=== PATIENT | male | born 1955 | race Caucasian/White ===

== ENCOUNTER → 2017-12-30 09:54 | Outpatient (CLI) | payer OTHER, SELFPAY ==
[2017-12-30 11:51] LABS: ALB/GLOB Ratio 1.3 RATIO (0.9-2.4); AST(SGOT) 21 U/L (15-37); Alanine Aminotransfer ALT/SGPT 24 U/L (16-61); Albumin, Serum 3.9 g/dL (3.2-5.0); Alkaline Phosphatase 71 U/L (45-117); Anion Gap 7 (5-15); BUN 14 mg/dL (7-18); BUN/Creat Ratio 17.1 RATIO (10-20); Chloride 101 mmol/L (98-107); Creatinine, Serum 0.82 mg/dL (0.70-1.30); EST Glomerular Filtration Rate 101 mL/min (>60); Est Glom Filt Rate - Afr Amer 122 mL/min (>60); Globulin 3.1 g/dL (2.2-4.2); Glucose 91 mg/dL (74-106); PSA,Total - Annual Screen 5.15 ng/mL (0.00-4.00); Potassium 3.9 mmol/L (3.5-5.1); Sodium Level 138 mmol/L (136-145)
== END ==
PROVIDERS: Family Provider Family Medicine; PCP Family Medicine; Visit Provider Family Medicine
DX: Z00.00 Encounter for general adult medical examination without abnormal findings (principal); Z12.5 Encounter for screening for malignant neoplasm of prostate; I10 Essential (primary) hypertension
CPT/HCPCS: 36415; 80053; 84153; G0103

== ENCOUNTER → 2018-02-26 16:20 | Outpatient (CLI) | payer OTHER, SELFPAY ==
--- NOTE | 2018-02-26 | COLBX_PTH ---
PATIENT: BARBARA TIRADO LOC: [facility] U#:[id number] AGE/SX: 70/M ROOM: RE02/26/[address]: Dr. Frank Clay MD : 1955 BED: DIS: SPEC #: [id number] RECD: 03/04/18 11:15 STATUS: SHIVA OLMEDOValdez #: [id number] GARFIELD: 02/26/18 00:[address]: Frank Clay DEPT: SURGICAL PATHOLOGY RECD BY: Jesus Talbot ENTERED: 03/04/18 11:15 SP TYPE: COLON BX JCARLOS DR: Dr. Devante Zaragoza, [facility] Tissues: Sigmoid colon biopsy Procedures: Surgery Specimen Level IV HEADER OPERATION: Colonoscopy with biopsies PRE-OP DIAGNOSIS: History of polyps TISSUE SUBMITTED: Proximal sigmoid, rule out adenoma MICROSCOPIC DIAGNOSIS Proximal sigmoid colon, biopsy: Tubular adenoma. SJ:dillon 03/04/18 MICROSCOPIC DESCRIPTION Slides are reviewed. GROSS DESCRIPTION Received in fixative is one container labeled with the patient's name and designated proximal sigmoid colon biopsy. The specimen consists of one irregular fragment of light chan soft tissue that measures 0.2 x 0.2 x 0.1 cm. The specimen is totally submitted in one cassette. / SJ:dillon 03/01/18 TC:1 CPT: 96346
== END ==
PROVIDERS: Family Provider Family Medicine; PCP Family Medicine; Visit Provider Internal Medicine Gastroenterology
DX: K63.5 Polyp of colon (principal); Z86.010 Personal history of colon polyps
CPT/HCPCS: 88305

== ENCOUNTER → 2018-07-06 13:39 | Outpatient (CLI) | payer OTHER, SELFPAY ==
[2018-07-07 13:56] LABS: PSA, Total 4.9 ng/mL (0.0-4.0)
== END ==
PROVIDERS: Family Provider Family Medicine; PCP Family Medicine; Referring Provider Family Medicine; Visit Provider Family Medicine
DX: R97.20 Elevated prostate specific antigen [PSA] (principal)
CPT/HCPCS: 36415; 84153

== ENCOUNTER → 2018-12-29 08:57 | Outpatient (CLI) | payer OTHER, SELFPAY ==
[2018-12-29 08:31] VITALS: BMI 25.2
[2018-12-29 12:54] LABS: Absolute Lymphocyte Count 1.81 X10^3/ul (0.83-4.51); Absolute Neutrophil Count 4.2 X10^3/uL (2.0-7.7); Basophil# 0.04 X10^3/uL; Basophil% 0.6 % (0-1); Eosinophil# 0.09 X10^3/uL; Eosinophils% 1.4 % (0-5); Hematocrit 45.4 % (40-54); Hemoglobin 15.4 g/dl (13.0-16.5); Lymphocyte # 1.81 X10^3/ul (4.0); Lymphocyte % 27.2 % (19-41); Mean Corp Hgb Conc 33.9 g/gl (32-36); Mean Corpuscular Hgb 31.8 pg (27.0-32.0); Mean Corpuscular Volume 93.8 fL (80-94); Mean Platelet Vol. 10.9 fl (6.2-12.0); Monocyte# 0.56 X10^3/uL; Monocyte% 8.4 % (0-10); Neutrophil # 4.15 X10^3/uL (2.7-7.7); Neutrophil % 62.2 % (47-70); Platelet Count 232 K/mm3 (150-450); RBC Distribution Width CV 12.7 % (11.6-14.6); RBC Distribution Width SD 42.9 fl (35.1-43.9); Red Blood Count 4.84 M/mm3 (4.6-6.2); White Blood Count 6.7 K/mm3 (4.4-11.0)
[2018-12-29 12:58] LABS: POSITIVE COUNT NO; POSITIVE DIFFERENTIAL NO; POSITIVE MORPHOLOGY NO
[2018-12-29 13:16] LABS: ALB/GLOB Ratio 1.3 RATIO (0.9-2.4); AST(SGOT) 22 U/L (15-37); Alanine Aminotransfer ALT/SGPT 28 U/L (16-61); Albumin, Serum 3.8 g/dL (3.2-5.0); Alkaline Phosphatase 64 U/L (45-117); Anion Gap 7 (5-15); BUN 14 mg/dL (7-18); BUN/Creat Ratio 17.6 RATIO (10-20); Calcium,Total 8.7 mg/dL (8.5-10.1); Chloride 102 mmol/L (98-107); Cholesterol 177 mg/dL (200); EST Glomerular Filtration Rate 104 mL/min (>60); Est Glom Filt Rate - Afr Amer 125 mL/min (>60); Globulin 2.9 g/dL (2.2-4.2); Glucose 97 mg/dL (74-106); High Density Lipoprotein 81 mg/dL; PSA,Total - Annual Screen 4.35 ng/mL (0.00-4.00); Protein, Total 6.7 g/dL (6.4-8.2); Sodium Level 137 mmol/L (136-145); Triglycerides 60 mg/dL; Very Low Density Lipoprotein 12 mg/dL (5-40)
== END ==
PROVIDERS: Family Provider Family Medicine; PCP Family Medicine; Visit Provider Family Medicine
DX: I10 Essential (primary) hypertension (principal); R53.83 Other fatigue; R97.20 Elevated prostate specific antigen [PSA]
CPT/HCPCS: 36415; 80053; 80061; 84153; 85025; G0103

== ENCOUNTER 2019-05-21 09:59 | Emergency (ER) | payer OTHER, SELFPAY ==
[2019-05-20 13:31] VITALS: BMI 25.0
[2019-05-21 10:00] VITALS: BP 185/113; PULSE 72; RESP 14; TEMP 36.1; O2SAT 97; BMI 25.7
--- NOTE | 2019-05-21 10:39 | ED.VIS.GEN ---
History of Present Illness Chief Complaint: Cellulitis Informant: Patient Onset: Days Maximum Severity: Mild Narrative: Patient indicates he has a red patch to his skin involving the left calf that began he believes Thursday. 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, works as a mechanic and welder he felt that the calf was irritated he looked back and found what he felt was an insect bite type lesion and then subsequently the area developed some more redness superficially to the skin, he was seen by his outpatient providers yesterday started on cephalexin took 2 tablets he was concerned that the redness had extended beyond the ink ink demarcation and he came in for evaluation he does not know why has this lesion he has no history of MRSA skin infections or other conditions he is concerned he was bitten by a spider but he had no exposure to spiders Past Medical History - Allergies and Home Meds Allergies/Adverse Reactions: Allergies Penicillins Allergy (Verified 05/21/19 10:10) Rash swelling too Primary Care Physician: Devante Zaragoza DO [Primary Care Provider] - Past Medical History: - - Hypertension and as above Smoking Status: Current every day smoker Review of Systems General: Denies: Chills, Fever, Sweats Eyes: Denies: Visual changes - bilaterally, Diplopia ENT: Denies: Rhinorrhea, Sore throat Cardiovascular: Denies: Chest pain, Palpitations Respiratory: Denies: Dyspnea, Cough, Dyspnea on exertion Gastrointestinal: Denies: Abdominal pain, Nausea, Vomiting, Diarrhea, Melena, Hematochezia Genitourinary: Denies: Dysuria, Hematuria, Frequency Musculoskeletal: Denies: Back pain, Extremity Pain Skin: Reports: Rash, - - The red skin rash to the left calf as above. Denies: Wounds Neurological: Denies: Headache, Weakness, Numbness Physical Exam Vital Signs/Narrative: Vital Signs Temp Pulse Resp BP Pulse Ox 05/21/19 10:00 97.0 F L 72 14 185/113 H 97 General: Well nourished, Well developed, No Acute Distress Head: Normocephalic, Atraumatic Eyes: Perrl, EOMI ENT: Moist mucous membranes, No rhinorrhea Neck: Supple, Nontender Cardiovascular: Regular rate, Regular rhythm, No murmurs Respiratory: No distress, CTA bilaterally, Chest nontender Abdomen: Soft, Nontender, Nondistended, Normal bowel sounds Back: Nontender, Normal Inspection Extremities: Nontender, No edema Skin: Normal color, Rash, - - To the left calf area there is a area of red patchy skin involving the calf the calf the soft is not fluctuant there is no warmth deep signs of infection he has full dorsi and plantar flexion full movement of the knee, central to this area to the 7 o'clock position are what appear to be possibly to bite balderas, they are not infected no draining Neurological: Alert, Oriented x3, Cranial nerves II-XII grossly intact, Normal Strength, Normal Sensation Psychological: Normal affect, Normal Mood Diagnostic/Tx/Re-eval - Medical Decision Making At this time given all the above I explained to the patient that this certainly could represent an insect bite given the demarcations as above, given he had no exposures to spiders in any way this would be less likely at this time be started continue on the cephalexin originally had 2 pills there is no way to determine if this is an antibiotic resistance with a short course as above, we will add Bactrim wound care and to follow-up with his outpatient providers Thursday and return for change in symptoms or worsening of his condition anyway Home stable Final impression Cellulitis involving the left lower leg calf area ED Disposition - Plan for ED Patient: Diagnosis: Cellulitis Instructions: MRSA SKIN INFECTION, Suspected or Confirmed Prescriptions: Smz/Tmp Ds [Bactrim Ds] 1 tab PO BID #14 tab Prescription Printed Referrals: Devante Zaragoza DO [Primary Care Provider] - Additional Instructions: Continue the cephalexin continue the Bactrim follow-up with your doctors in a few days
[2019-05-21] MEDS: Smz/Tmp Ds Tablet 1 TABLET PO (10:51)
[2019-05-21 10:54] VITALS: RESP 16
== END 2019-05-21 11:03 | disposition home or self-care (01) ==
LOC: ED 11:02
PROVIDERS: Emergency Provider Emergency Medicine; Family Provider Family Medicine; PCP Family Medicine
DX: L03.116 Cellulitis of left lower limb (principal); I10 Essential (primary) hypertension; F17.200 Nicotine dependence, unspecified, uncomplicated
CPT/HCPCS: 99282

== ENCOUNTER → 2019-06-30 09:47 | Outpatient (CLI) | payer OTHER, SELFPAY ==
[2019-06-30 09:26] VITALS: BMI 25.1
[2019-06-30 14:17] LABS: PSA,Total- Diagnostic 4.82 ng/mL (0.0-4.0)
== END ==
PROVIDERS: Family Provider Family Medicine; PCP Family Medicine; Visit Provider Family Medicine
DX: R97.20 Elevated prostate specific antigen [PSA] (principal); R53.83 Other fatigue
CPT/HCPCS: 36415; 84153; 84403

== ENCOUNTER → 2020-02-15 12:39 | Outpatient (CLI) | payer OTHER, SELFPAY ==
[2020-02-15 08:42] VITALS: BMI 25.1
[2020-02-15 14:08] LABS: Anion Gap 6 (5-15); BUN 14 mg/dL (7-18); BUN/Creat Ratio 18.6 RATIO (10-20); Calcium,Total 9.4 mg/dL (8.5-10.1); Chloride 100 mmol/L (98-107); Creatinine, Serum 0.75 mg/dL (0.70-1.30); EST Glomerular Filtration Rate 110 mL/min (>60); Est Glom Filt Rate - Afr Amer 133 mL/min (>60); Glucose 95 mg/dL (74-106); PSA,Total- Diagnostic 6.98 ng/mL (0.0-4.0); Potassium 3.8 mmol/L (3.5-5.1); Sodium Level 136 mmol/L (136-145)
== END ==
PROVIDERS: PCP Family Medicine; Visit Provider Family Medicine
DX: N40.0 Benign prostatic hyperplasia without lower urinary tract symptoms (principal); I10 Essential (primary) hypertension
CPT/HCPCS: 80048; 84153

== ENCOUNTER 2020-03-11 10:17 | Emergency (ER) | payer OTHER, SELFPAY ==
[2020-02-15 08:42] VITALS: BMI 25.1
[2020-03-11 10:18] VITALS: BP 144/89; PULSE 54; RESP 16; TEMP 36.3; BMI 25.7
--- NOTE | 2020-03-11 10:26 | RAD_ITS ---
STUDY: X-RAY CHEST REASON FOR EXAM: Male, 65 years old. TECHNIQUE: Frontal view COMPARISON: None. FINDINGS: The lungs are clear and expanded. There is no demonstrated pleural abnormality. Normal size heart. Normal mediastinum and mariam. Normal visualized pulmonary arteries. Normal visualized aortic arch and descending thoracic aorta. Normal visualized thoracic spine. Normal visualized ribs, clavicles, and shoulders. There is no demonstrated abnormality of the visualized soft tissue structures of the upper abdomen. RAD/Chest 1 View (Portable) IMPRESSION: Normal x-ray examination of the chest. Electronically Signed: David Moore DO at 11:25 EDT Tel [phone], Service support ,
--- NOTE | 2020-03-11 10:26 | CT_ITS ---
STUDY: CT BRAIN WITHOUT CONTRAST REASON FOR EXAM: Male, 65 years old. DIZZINESS X 3 DAYS RADIATION DOSAGE (If Supplied By Facility): CTDIvol = ( 44.99 ) mGy, DLP = ( 812.98 ) mGycm TECHNIQUE: Transaxial CT imaging of the brain was performed without administration of intravenous contrast material. Individualized dose optimization techniques were used for this CT. COMPARISON: No relevant priors. FINDINGS: Normal size ventricles and extra-axial spaces for the patient''s age. There are areas of decreased attenuation within the white matter tracts of the supratentorial brain, consistent with microvascular disease changes. Normal basal ganglia and thalami. Normal brainstem. Normal cerebellum. There is no intracranial hemorrhage. There are no findings of an acute ischemic infarction. Normal visualized paranasal sinuses. CT/Brain/Head without Contrast IMPRESSION: No acute intracranial abnormality. Electronically Signed: Jaden De Anda MD at 11:37 EDT Tel , Service support ,
--- NOTE | 2020-03-11 10:26 | EKG12_ITS ---
Test Reason : DYSRHYTHMIA Blood Pressure : / mmHG Vent. Rate : 050 BPM Atrial Rate : 050 BPM P-R Int : 166 ms QRS Dur : 122 ms QT Int : 462 ms P-R-T Axes : 048 -62 021 degrees QTc Int : 421 ms Sinus bradycardia with sinus arrhythmia Left axis deviation Septal infarct , age undetermined Abnormal ECG Confirmed by ANIA HUNT, KILO ([id number]), pot lining supervisor VICKI LÓPEZ ([id number]) on 03/13/2020 11:13:40 AM Referred By: KSENIA Confirmed By:KILO JORGE MD
[2020-03-11 10:45] LABS: Absolute Neutrophil Count 4.1 X10^3/uL (2.0-7.7); Basophil# 0.05 X10^3/uL; Basophil% 0.8 % (0-1); Eosinophil# 0.09 X10^3/uL; Eosinophils% 1.4 % (0-5); Hematocrit 46.6 % (40-54); Hemoglobin 15.2 g/dL (13.0-16.5); Mean Corp Hgb Conc 32.6 g/dL (32-36); Mean Corpuscular Hgb 32.2 pg (27.0-32.0); Mean Corpuscular Volume 98.7 fL (80-94); Mean Platelet Vol. 9.9 fl (6.2-12.0); Monocyte# 0.52 X10^3/uL; Monocyte% 8.1 % (0-10); NRBC Flagged by Analyzer 0 % (0-5); Neutrophil # 4.12 X10^3/uL (2.7-7.7); Neutrophil % 64.4 % (47-70); Platelet Count 231 K/mm3 (150-450); RBC Distribution Width CV 12.6 % (11.6-14.6); RBC Distribution Width SD 45.8 fl (35.1-43.9); Red Blood Count 4.72 M/mm3 (4.6-6.2); White Blood Count 6.4 K/mm3 (4.4-11.0)
--- NOTE | 2020-03-11 10:46 | ED.DCSUM_ITS ---
History of Present Illness <Andrea Pack - Last Filed: 03/11/20 11:03> Informant: Patient Onset: Yesterday Context: Sudden Onset Timing: Intermittent Quality: romm spinning Location: head Current Severity: Moderate Maximum Severity: Severe Worsened by: movement Relieved by: rest Associated Symptoms: nausea Narrative: 65-year-old male history of vertigo presents with dizziness and room spinning sensation that he has had intermittently for the last 3 days. Started when he was on a boat on Thursday and has had intermittent episodes since. They have stopped with rest but symptoms today when he got up in the morning did not resolve with rest and he presents here. No headache. No blurry vision double vision or loss of vision. No numbness tingling or weakness or difficulty with speech or ambulation. No head trauma. He is not on blood thinners. No tenderness. No fevers or chills chest pain or shortness of breath vomiting or neck pain. Prior similar symptoms: Yes Recent Illness/Hospitalization: No <Juan CarlosyolandeErik - Last Filed: 03/11/20 11:53> Chief Complaint: Dizziness Past Medical History <Andrea Pack - Last Filed: 03/11/20 11:03> Prior records reviewed: Yes Past Medical History: - - Spinal stenosis, hypertension, osteoarthritis Surgical History: - - Knee surgery Lives: With Family Smoking Status: Current every day smoker Alcohol: Occasional Drugs: None <Erik Caceres - Last Filed: 03/11/20 11:53> - Allergies and Home Meds Allergies/Adverse Reactions: Allergies Penicillins Allergy (Verified 03/11/20 10:20) Rash swelling too Primary Care Physician: eDvante Zaragoza DO [Primary Care Provider] - Review of Systems All systems negative except as indicated General: Denies: Chills, Fever, Sweats Eyes: Denies: Visual changes - bilaterally, Diplopia ENT: Denies: Rhinorrhea, Sore throat Cardiovascular: Denies: Chest pain, Palpitations Respiratory: Denies: Dyspnea, Cough, Dyspnea on exertion Gastrointestinal: Denies: Abdominal pain, Nausea, Vomiting, Diarrhea, Melena, Hematochezia Genitourinary: Denies: Dysuria, Hematuria, Frequency Musculoskeletal: Denies: Back pain, Extremity Pain Skin: Denies: Rash, Wounds Neurological: Denies: Headache, Weakness, Parasthesia, Numbness <Erik Caceres - Last Filed: 03/11/20 11:53> Physical Exam Vital Signs/Narrative: Vital Signs Temp Pulse Resp BP Pulse Ox 03/11/20 11:00 49 L 18 162/84 H 95 03/11/20 10:18 97.3 F L 54 L 16 144/89 H <Andrea Pack - Last Filed: 03/11/20 11:03> Vital Signs/Narrative: Vital Signs Temp Pulse Resp BP 03/11/20 10:18 97.3 F L 54 L 16 144/89 H Inital Vital Signs reviewed: Yes General: Well nourished, Well developed, No Acute Distress Head: Normocephalic, Atraumatic Eyes: Perrl, EOMI ENT: Moist mucous membranes, No rhinorrhea Neck: Supple, Nontender Cardiovascular: Regular rate, Regular rhythm, No murmurs Respiratory: No distress, CTA bilaterally, Chest nontender Abdomen: Soft, Nontender, Nondistended, Normal bowel sounds Back: Nontender, Normal Inspection Extremities: Nontender, No edema Skin: Normal color, No rash Neurological: Alert, Oriented x3, Cranial nerves II-XII grossly intact, Normal Strength, Normal Sensation, Normal Gait Psychological: Normal affect, Normal Mood <Erik Caceres - Last Filed: 03/11/20 11:53> Diagnostic/Tx/Re-eval - Medical Decision Making Patient seen with Erik agree with history and physical as above patient presents with spinning dizzy sensation since Thursday Had this before he has no loss of function just a sense of spinning sensation like he is on a [id number] no headache change in vision numbness weakness paresthesias, this began after he had been on a boat Thursday fishing all day, no history of [place] PE DVT stroke or seizure he does have a history of peripheral vertigo Head neck chest abdomen unremarkable there is no nystagmus if he is perfectly still his symptoms go away neurologic exams unremarkable NIH 0 at this time undergo evaluation treatment see chart for full details <Andrea Pack - Last Filed: 03/11/20 11:03> Chest X-Ray - ED: 1 View, Read by ED Physician, Read by Radiologist, No Acute Disease - Rhythm Strip Rhythm Strip: Sinus Rhythm Rate: 50 Ectopy: None - EKG Initial EKG Interpretation: Sinus Rhythm, No Acute Injury Pattern Prior: Unchanged - Medical Decision Making EKG was normal sinus rhythm without ST segment or T wave changes and with normal intervals. No ectopy is seen. It is unchanged from his previous EKG. Patient was given Valium orally because we do not have IV Valium. CT brain was unremarkable for acute findings. Chest x-ray showed chronic c hanges no acute findings. Laboratory work-up unremarkable. Repeat evaluation patient feels improved. Normal stable vital signs. He is ambulatory on his own without difficulty. Will discharge with meclizine <Erik Caceres - Last Filed: 03/11/20 11:53> ED Disposition <Andrea Pack - Last Filed: 03/11/20 11:03> <Erik Caceres - Last Filed: 03/11/20 11:53> - Plan for ED Patient: Disposition: Home or Assisted Living Diagnosis: Vertigo, Hypertension Instructions: ED BPV Vertigo Prescriptions: Meclizine HCl 25 mg PO TID PRN PRN #20 tab PRN Reason: dizziness Prescription Printed Referrals: Devante Zaragoza DO [Primary Care Provider] -
[2020-03-11] MEDS: diazePAM 5 MG Tablet PO (10:57)
[2020-03-11] MEDS: 0.9% Normal Saline 1,000 ML 150 ML IV (10:58)
[2020-03-11 11:00] VITALS: BP 162/84; PULSE 49; RESP 18; O2SAT 95; O2SAT 96
[2020-03-11 11:03] LABS: Anion Gap 4 (5-15); BUN 15 mg/dL (7-18); BUN/Creat Ratio 18.7 RATIO (10-20); Calcium,Total 9.1 mg/dL (8.5-10.1); Chloride 102 mmol/L (98-107); EST Glomerular Filtration Rate 102 mL/min (>60); Est Glom Filt Rate - Afr Amer 124 mL/min (>60); Estimated Creatinine Clearance 93.78 ml/min; Glucose 118 mg/dL (74-106); Potassium 3.9 mmol/L (3.5-5.1); Sodium Level 138 mmol/L (136-145)
[2020-03-11 11:19] LABS: BNP,B-Type NATRIURETIC PEPTIDE 83.4 pg/mL (0-100)
[2020-03-11] MEDS: Meclizine HCl 25 MG Tablet PO (12:10)
[2020-03-11 12:15] VITALS: BP 147/85; PULSE 47; RESP 18; O2SAT 98
== END 2020-03-11 12:25 | disposition home or self-care (01) ==
LOC: ED 12:06
PROVIDERS: Emergency Medicine; Emergency Provider Physician Assistant Medical; PCP Family Medicine
DX: R42 Dizziness and giddiness (principal); I10 Essential (primary) hypertension; F17.200 Nicotine dependence, unspecified, uncomplicated
CPT/HCPCS: 70450; 71045; 80048; 83880; 84484; 85025; 93005; 99285; J7030

== ENCOUNTER → 2020-03-26 16:07 | Outpatient (CLI) | payer OTHER, SELFPAY ==
[2020-03-11 10:18] VITALS: BMI 25.7
--- NOTE | 2020-03-26 | IMM_PTH ---
PATIENT: BARBARA TIRADO LOC: [facility] U#:[id number] AGE/SX: 70/M ROOM: RE03/26/[address]: Dr. Vj Dias MD : 1955 BED: DIS: SPEC #: [id number] RECD: 03/28/20 13:33 STATUS: SHIVA REValdez #: [id number] GARFIELD: 03/26/20 00:[address]: Vj Dias DEPT: IMMUNOHISTOCHEMISTRY RECD BY: Angela Cordova ENTERED: 03/28/20 13:34 SP TYPE: IMMUNO OTHR DR: Dr. Devante Zaragoza, Tissues: C - PROSTATE RIGHT Procedures: P40 (add) 34BE12 (initial) PHYSICIAN & INSTITUTION [place] [id number] SPECIMEN INFORMATION: Tissue Source: C - Right prostate, base, core biopsy Clinical Info: Prostate cancer, elevated PSA Specimen Number: [id number] CPT code: 73810, 01761 METHODOLOGY: Deparaffinized sections of prefer/formalin-fixed tissue or PAP/DQ stained slides are incubated with monoclonal/polyclonal antibodies/oligonucleotide probes. Localization is made via biotin free immunoperoxidase method. Appropriate controls are performed and reacted as expected. Results on target cell population are indicated in the following table: RESULTS: ANTIBODY / CLONE RESULT Block C P40 (BC28) negative 34BE12 (34BE12) negative These tests were developed and their performance characteristics determined by [facility]. They may not have been cleared or approved by the U.S. Food and Drug Administration. The FDA has determined that such clearance or approval is not necessary. The above immunohistochemical/dualISH markers are ordered and reviewed by the Pathologist. INTERPRETATION: C. Right prostate, base, core biopsy: Focal atypical small acinar proliferation. Focal high-grade prostatic intraepithelial neoplasia (HGPIN). Comment: Atypical focus consists of only 2-3 glands. SJ:dillon 03/29/20
--- NOTE | 2020-03-26 08:00 | PROSBIL_PTH ---
PATIENT: BARBARA TIRADO LOC: [facility] U#:[id number] AGE/SX: 70/M ROOM: RE03/26/[address]: Dr. Vj Dias MD : 1955 BED: DIS: SPEC #: [id number] RECD: 03/26/20 16:04 STATUS: SHIVA CARLA #: [id number] GARFIELD: 03/26/20 08:[address]: Vj Dias DEPT: SURGICAL PATHOLOGY RECD BY: James Mark ENTERED: 03/27/20 09:38 SP TYPE: PROST BX JCARLOS DR: Dr. Devante Zaragoza DO Tissues: A - PROSTATE RIGHT B - PROSTATE RIGHT C - PROSTATE RIGHT D - PROSTATE LEFT E - PROSTATE LEFT F - PROSTATE LEFT Procedures: PROSTATE BX HEADER OPERATION: Prostate biopsy PRE-OP DIAGNOSIS: Prostate cancer, elevated PSA TISSUE SUBMITTED: A - Right apex, B - Right mid, C - Right base, D - Left apex, E - Left mid, F - Left base MICROSCOPIC DIAGNOSIS A. Right prostate, apex, core biopsy: Focal high-grade prostatic intraepithelial neoplasia (HGPIN). Focal mild chronic inflammation. B. Right prostate, mid, core biopsy: Prostatic tissue, negative for malignancy. C. Right prostate, base, core biopsy: Focal atypical small acinar proliferation. Focal high-grade prostatic intraepithelial neoplasia (HGPIN). See comment. D. Left prostate, apex, core biopsy: Prostatic tissue, negative for malignancy. E. Left prostate, mid, core biopsy: Focal high-grade prostatic intraepithelial neoplasia (HGPIN). F. Left prostate, base, core biopsy: Focal high-grade prostatic intraepithelial neoplasia (HGPIN). SJ:dillon 03/29/20 COMMENT C. Immunohistochemistry ([id number]) supports the above diagnosis. Case has been reviewed in consultation with Dr. Park who concurs with the above diagnosis. IDC:AM MICROSCOPIC DESCRIPTION Slides are reviewed. GROSS DESCRIPTION A - Received is one container designated prostate, right apex. The specimen consists of two elongated fragments of light chan-white soft tissue measuring 0.5 and 1.2 cm in length and 0.1 cm in diameter. The specimen is totally submitted in one cassette. B - Received is one container designated prostate, right mid. The specimen consists of two elongated fragments of light chan-white soft tissue each measuring 1.5 cm in length and 0.1 cm in diameter. The specimen is totally submitted in one cassette. C - Received is one container designated prostate, right base. The specimen consists of two elongated fragments of light chan-white soft tissue measuring 1.2 and 1.5 cm in length and 0.1 cm in diameter. The specimen is totally submitted in one cassette. D - Received is one container designated prostate, left apex. The specimen consists of one elongated fragment of light chan-white soft tissue measuring 1.5 cm in length and 0.1 cm in diameter. The specimen is totally submitted in one cassette. E - Received is one container designated prostate, left mid. The specimen consists of two elongated fragments of light chan-white soft tissue each measuring 1.5 cm in length and 0.1 cm in diameter. The specimen is totally submitted in one cassette. F - Received is one container designated prostate, left base. The specimen consists of two elongated fragments of light chan-white soft tissue each measuring 1.5 cm in length and 0.1 cm in diameter. The specimen is totally submitted in one cassette. / CHUCK:dillon 03/27/20 TC:5 CPT: G0146
== END ==
PROVIDERS: PCP Family Medicine; Referring Provider Urology; Visit Provider Urology
DX: C61 Malignant neoplasm of prostate (principal); R97.20 Elevated prostate specific antigen [PSA]
CPT/HCPCS: 88305; 88341; 88342; G0416

== ENCOUNTER → 2020-10-02 10:45 | Outpatient (CLI) | payer MEDICARE, SELFPAY ==
[2020-10-02 12:03] LABS: PSA,Total- Diagnostic 7.63 ng/mL (0.0-4.0)
== END ==
PROVIDERS: PCP Family Medicine; Visit Provider Urology
DX: R97.20 Elevated prostate specific antigen [PSA] (principal)
CPT/HCPCS: 36415; 84153

== ENCOUNTER 2020-12-06 07:21 | Outpatient (RCR) | payer MEDICARE, SELFPAY ==
[2020-12-06] MEDS: COVID-19 VACC, MRNA(PFIZER)/PF 30 MCG/0.3 ML SYRINGE IM (13:21)
[2020-12-27] MEDS: COVID-19 VACC, MRNA(PFIZER)/PF 30 MCG/0.3 ML SYRINGE IM (12:40)
== END 2021-03-05 23:59 ==
LOC: IMMUN 07:21
PROVIDERS: PCP Family Medicine; Referring Provider Family Medicine; Visit Provider Family Medicine
DX: Z23 Encounter for immunization (principal)
CPT/HCPCS: 0001A; 0002A; 91300

== ENCOUNTER → 2021-01-02 11:31 | Outpatient (CLI) | payer MEDICARE, SELFPAY ==
[2021-01-02 11:02] VITALS: BMI 26.4
[2021-01-02 13:10] LABS: ALB/GLOB Ratio 1.4 RATIO (0.9-2.4); AST(SGOT) 28 U/L (15-37); Alanine Aminotransfer ALT/SGPT 29 U/L (16-61); Alkaline Phosphatase 90 U/L (45-117); Anion Gap 5 (5-15); BUN 12 mg/dL (7-18); BUN/Creat Ratio 16.7 RATIO (10-20); Calcium,Total 9.6 mg/dL (8.5-10.1); Chloride 98 mmol/L (98-107); Cholesterol 212 mg/dL (200); Creatinine, Serum 0.72 mg/dL (0.70-1.30); EST Glomerular Filtration Rate 116 mL/min (>60); Est Glom Filt Rate - Afr Amer 140 mL/min (>60); Globulin 2.9 g/dL (2.2-4.2); Glucose 97 mg/dL (74-106); High Density Lipoprotein 91 mg/dL; Potassium 3.9 mmol/L (3.5-5.1); Protein, Total 6.9 g/dL (6.4-8.2); Sodium Level 133 mmol/L (136-145); Triglycerides 83 mg/dL; Very Low Density Lipoprotein 17 mg/dL (5-40)
== END ==
PROVIDERS: PCP Family Medicine; Referring Provider Family Medicine; Visit Provider Family Medicine
DX: I10 Essential (primary) hypertension (principal)
CPT/HCPCS: 36415; 80053; 80061

== ENCOUNTER → 2021-04-12 11:39 | Outpatient (CLI) | payer MEDICARE, SELFPAY ==
[2021-01-02 11:02] VITALS: BMI 26.4
[2021-04-12 13:55] LABS: PSA,Total- Diagnostic 7.36 ng/mL (0.0-4.0)
== END ==
PROVIDERS: PCP Family Medicine; Referring Provider Urology; Visit Provider Urology
DX: R97.20 Elevated prostate specific antigen [PSA] (principal)
CPT/HCPCS: 36415; 84153

== ENCOUNTER → 2021-08-09 06:47 | Outpatient (CLI) | payer MEDICARE, SELFPAY ==
--- NOTE | 2021-08-09 06:51 | CT_ITS ---
STUDY: CT ABDOMEN AND PELVIS WITH CONTRAST REASON FOR EXAM: Male, 66 years old. Two-year history of right inguinal pain. Suspected hernia RADIATION DOSAGE (If Supplied By Facility): CTDIvol = ( 15.75 ) mGy, DLP = ( 1163.95 ) mGycm TECHNIQUE: Transaxial images were obtained from the dome of the diaphragm to the symphysis pubis without oral contrast. IV 100mL Isovue-300 was administered. Sagittal and coronal images were reconstructed. Individualized dose optimization techniques were used for this CT. COMPARISON: None. FINDINGS: Minimal increased linear markings at the left lung base suggestive scarring. Coronary artery calcification. Normal liver. Normal gallbladder and extrahepatic biliary system. Normal spleen. Normal pancreas. Normal bilateral adrenal glands. Normal right kidney. There is a 3.2 cm x 3.5 cm cyst in the upper medial aspect of the left kidney. There is also evidence of a 1.3 cm cyst in the lower pole of the left kidney as well as a 2.5 semi cyst in the medial posterior aspect of the left kidney. Normal visualized stomach. Normal small intestine. There are multiple colonic diverticula consistent with diverticulosis. The appendix is visualized and appears normal. There is diffuse atherosclerotic calcification of the abdominal aorta, without a demonstrated aneurysm. Normal inferior vena cava. Normal retroperitoneum. Diffuse bladder wall thickening. Scattered calcifications of the penis suggestive of possible Peyrone''s disease. Prostate calcification. Left hydrocele. Small bilateral inguinal hernias containing fat more prominent on the right side. There are diffuse degenerative changes of the visualized lumbar spine. Minimal anterolisthesis of L3 on L4. Loss of the normal lumbar lordosis. CT/Abdomen/Pelvis W IV Cont ONLY IMPRESSION: Small bilateral inguinal hernias containing fat more prominent on the right side. Sigmoid diverticulosis. Left renal cyst. Diffuse bladder wall thickening. Electronically Signed: Aaron Serrano MD at 12:53 EST , Service support ,
[2021-08-09 07:06] LABS: CREATININE FINGERSTICK 0.6 mg/dL (0.70-1.30); EGFR FINGERSTICK > 60.0000 mL/min (>60)
== END ==
LOC: US 06:48 → CT 06:51
PROVIDERS: PCP Family Medicine; Referring Provider Family Medicine; Visit Provider Family Medicine
DX: K46.9 Unspecified abdominal hernia without obstruction or gangrene (principal)
CPT/HCPCS: 74177; Q9967

== ENCOUNTER 2021-10-17 11:38 | Outpatient (CLI) | payer MEDICARE, SELFPAY ==
[2021-10-17 12:39] LABS: PSA,Total- Diagnostic 7.23 ng/mL (0.0-4.0)
== END 2021-10-17 23:59 | disposition short-term general hospital (02) ==
LOC: LAB 11:39
PROVIDERS: PCP Family Medicine; Referring Provider Urology; Visit Provider Urology
DX: R97.20 Elevated prostate specific antigen [PSA] (principal)
CPT/HCPCS: 36415; 84153

== ENCOUNTER 2021-11-07 07:53 | Day surgery (SDC) | payer MEDICARE, SELFPAY ==
--- NOTE | 2021-11-06 09:12 | EKG12_ITS ---
Test Reason : PREOP Blood Pressure : / mmHG Vent. Rate : 053 BPM Atrial Rate : 053 BPM P-R Int : 160 ms QRS Dur : 128 ms QT Int : 442 ms P-R-T Axes : 024 -61 029 degrees QTc Int : 414 ms Sinus bradycardia Left axis deviation Non-specific intra-ventricular conduction block Abnormal ECG Confirmed by ESTHER HUNT, DEANNA ([id number]), editor newspaper JEREMY SCHMIDT ([id number]) on 11/07/2021 9:52:48 AM Referred By: Erik Rodriguez Confirmed By:DEANNA SANTANA MD
[2021-11-06 11:10] LABS: Hematocrit 42.3 % (40-54); Hemoglobin 14.8 g/dL (13.0-16.5); Mean Corpuscular Hgb 34.1 pg (27.0-32.0); Mean Corpuscular Volume 97.5 fL (80-94); Mean Platelet Vol. 10.2 fl (6.2-12.0); Platelet Count 255 K/mm3 (150-450); RBC Distribution Width CV 12.5 % (11.6-14.6); RBC Distribution Width SD 44.8 fl (35.1-43.9); Red Blood Count 4.34 M/mm3 (4.6-6.2); White Blood Count 5.9 K/mm3 (4.4-11.0)
[2021-11-06 11:43] LABS: AST(SGOT) 17 U/L (15-37); Alanine Aminotransfer ALT/SGPT 25 U/L (16-61); Albumin, Serum 3.6 g/dL (3.2-5.0); Alkaline Phosphatase 75 U/L (45-117); Anion Gap 7 (5-15); BUN 13 mg/dL (7-18); BUN/Creat Ratio 19.6 RATIO (10-20); Bilirubin, Direct 0.15 mg/dL (0.00-0.30); Chloride 101 mmol/L (98-107); Creatinine, Serum 0.66 mg/dL (0.70-1.30); EST Glomerular Filtration Rate 127 mL/min (>60); Est Glom Filt Rate - Afr Amer 153 mL/min (>60); Glucose 113 mg/dL (74-106); Potassium 3.8 mmol/L (3.5-5.1); Protein, Total 6.6 g/dL (6.4-8.2); Sodium Level 136 mmol/L (136-145)
[2021-11-06 12:00] LABS: Prothrombin Time (Protime)PT. 12.7 SECONDS (11.7-14.9)
--- NOTE | 2021-11-07 | HERN_PTH ---
PATIENT: BARBARA TIRADO LOC: [facility] U#:[id number] AGE/SX: 66/M ROOM: RE11/07/[address]: Dr. Erik Rodriguez MD : 1955 BED: DIS: 11/07/2021 SPEC #: [id number] RECD: 11/07/21 14:08 STATUS: SHIVA CARLA #: [id number] GARFIELD: 11/07/21 00:[address]: Erik Rodriguez DEPT: SURGICAL PATHOLOGY RECD BY: Jesus Talbot ENTERED: 11/07/21 14:08 SP TYPE: Hernia OTHR DR: Dr. Devante Zaragoza, DO Tissues: HERNIA Procedures: Surgery Specimen Level III HEADER OPERATION: Lap robotic inguinal hernia, mesh PRE-OP DIAGNOSIS: Bilateral groin pain TISSUE SUBMITTED: Left cord lipoma MICROSCOPIC DIAGNOSIS Left cord lipoma: Mature adipose tissue, consistent with lipoma. CHUCK:dillon 11/08/2021 MICROSCOPIC DESCRIPTION Slides are reviewed. GROSS DESCRIPTION Received in fixative is one container labeled with the patient's name and designated left cord lipoma. The specimen consists of an irregular piece of adipose tissue measuring 4 x 1 x 0.3 cm. The entire specimen is submitted in one cassette. / SJ:rg 11/07/2021 TC:1 CPT: 90199
--- NOTE | 2021-11-07 08:32 | HP.PCM_ITS ---
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 Is patient in pain?: No Allergies Penicillins Allergy (Verified 08/20/21 09:31) Rash Medications ascorbic acid (vitamin C) 500 mg capsule mg PO 01/02/21 [History Confirmed 08/20/21] metoprolol succinate 50 mg tablet,extended release 24 hr 50 mg PO QDAY #90 tab 01/02/21 [Rx Confirmed 08/20/21] multivitamin,rd-vjac-grfooodj 1 tablet PO DAILY 01/02/21 [History Confirmed 08/20/21] nifedipine 30 mg tablet,extended release 24 hr 30 mg PO QDAY #90 tab 01/02/21 [Rx Confirmed 08/20/21] telmisartan 80 mg-hydrochlorothiazide 25 mg tablet 1 tab PO QDAY #90 tab 01/02/21 [Rx Confirmed 08/20/21] zinc 50 mg tablet 50 mg PO DAILY 01/02/21 [History Confirmed 08/20/21] PFSH Medical History (Updated 08/21/21 @ 08:[address] Erik Rodriguez MD) Arthritis Hypertension Spinal stenosis Surgical History History of knee surgery Family History Father Cancer prostate Mother CVA (cerebral vascular accident) Social History Smoking Status: Current every day smoker alcohol intake: current alcohol intake frequency: 3 or more drinks per day Alcohol type: beer substance use type: does not use what type of physical activity do you participate in: none HPI HPI HPI: BARBARA TIRADO, is a 66 M who presents to the office today for groin swelling. The patient is having symptoms on the right side. Patient describes bulging as well as pain. Patient denies any nausea or vomiting or fevers or chills. Pain does not radiate. ROS General General: No weight change, appetite, fatigue, colon cancer, breast cancer or weakness HEENT HEENT: No difficulty swallowing, eye injury, eye surgery, swollen glands or hoarseness Endo Endocrine: No thyroid disease, diabetes mellitus, thyroid cancer, Hair loss, heat intolerance or cold intolerance Skin Skin: No rash or changing moles Breast Breast: No left breast lump, right breast lump, nipple discharge, breast pain, abnormal mammogram, abnormal US or breast enlargement Musc Musculoskeletal: Yes back problems and arthritis; No rheumatoid arthritis, gout or joint pain Cardio Cardiovascular: Yes murmur and high blood pressure; No pacemaker, heart disease, atrial fibrillation, heart attack, heart stent, palpitations, shortness of breat with exertion or chest pain Psych Psychiatric: No depression, anxiety or hearing voices Resp Respiratory: No shortness of breath, No sleep apnea, No cough, No COPD, No asthma, No emphysema and No wheezing Gastro Gastrointestinal: No abdominal pain, No nausea or vomiting, No diarrhea, No constipation, No blood in stool, No acid reflux, No hemorrhoids, No ulcers, No gallbladder problem and No black,tarry stools Cullen Hematologic: No blood thinners, No blood disorders, No bleeding, No anemia and No blood clots Neuro Neurologic: No system reviewed and no additional complaints, except as documented, No as per HPI, No abnormal gait, No abnormal hearing, No abnormal movements, No abnormal speech, No behavioral changes, No burning sensations, No confusion, No convulsions, No disequilibrium, No dizziness, No localized weakness, No frequent falls, No headache(s), No lack of coordination, No loss of vision, No memory loss, No numbness, No other visual disturbances, No radicular pain, No restless legs, No sensory deficit, No syncope, No tingling, No tremor(s), No weakness and No other Exam Const General: cooperative Orientation: alert and oriented x3 HENCA Head: normal to inspection Neck Neck: normal visual inspection and full ROM Chest Chest palpation & inspection: normal inspection of the chest Resp Effort & Inspection: normal respiratory effort Auscultation: clear to auscultation bilaterally Cardio Rate: regular rate Rhythm: regular rhythm GI Inspection: non-distended Palpation: soft, hernia indirect inguinal bilaterally and nontender Skin General: no rashes or lesions noted Neuro General: patient alert and patient oriented x3 Extrem General: full ROM Psych Appearance: grossly normal Mental Status: mental status grossly normal Assessment and Plan Assessment and Plan (1) Bilateral groin pain: Status: Acute Plan - Dr. Erik Rodriguez MD: Patient has groin bulging on the right but CT scan shows bilateral inguinal hernia. I discussed robotic assisted laparoscopic bilateral inguinal hernia repair with mesh. I discussed the procedure in detail as well as the risks including but not limited to bleeding, infection, injury to spermatic cord or bowel or blood supply to the testicle. Patient understands the risks and is when to proceed. I also discussed mesh placement in detail with the patient. Erik Rodriguez MD Pager: [facility] [address] [place] [address], [address] [place] [address] Office: I have seen and reexamined. No changes since prior exam.
[2021-11-07 08:36] VITALS: BP 150/76; PULSE 67; RESP 16; TEMP 37.1; O2SAT 98; BMI 25.0
[2021-11-07] MEDS: Lactated Ringers 1,000 ML 15 ML IV ×2 (08:50→09:31)
[2021-11-07] MEDS: Bupivacaine Mpf 0.5% 30 ML VIAL (10:21)
--- NOTE | 2021-11-07 10:24 | OP.PCM_ITS ---
Problems Associated Problem List Diagnoses (1) Bilateral inguinal hernia: Report of Operation Date of Procedure: 11/07/21 Pre-Operative Diagnosis: Bilateral inguinal hernias Post-Operative Diagnosis: Same Surgery/Procedure Performed:: Robotic assisted laparoscopic bilateral inguinal hernia repair with mesh Specimen's removed: Left cord lipoma Description of Procedure: Patient was brought back to the operating room and general anesthesia was induced. The abdomen was prepped and draped in usual sterile fashion. A midline incision was made superior to the umbilicus and deepened the fascia which was grasped and elevated and a Veress needle placed into the abdomen. A drop was performed and was normal. Veress needle was used to insufflate the abdomen to 15 mmHg. The Veress needle was removed and a camera port was placed into the abdomen and then the camera was placed in the abdomen and it was inspected and there were no injuries. Patient was placed in Trendelenburg position and under direct supervision a right lateral 8 mm port was placed as well as a left lateral 8 mm port. The robot was docked. Using electrocautery scissors the right inguinal region peritoneum was incised and dissection was carried inferiorly until the hernia sac was fully reduced and there was surrounding area around the hernia. ProGrip mesh was placed into the right inguinal region and unfolded completely cover the hernia with good overlap. Next the peritoneum was reapproximated using a running 3 OV lock suture to completely cover the mesh with peritoneum. Next attention was made to the left side. In the same fashion electrocautery scissors were used to make an incision in the peritoneum and dissection was carried inferiorly until the peritoneum was complete dissected off the area. Patient had a very small indirect inguinal hernia containing a lipoma. The lipoma was removed. Next ProGrip mesh was placed into the left inguinal region and unfolded completely covering the defect. The peritoneum was reapproximated using a running 3 OV lock suture completely covering the mesh. The robot was undocked and the patient ports were removed allowing the abdomen to desufflate. The incisions were injected with local anesthetic and closed with interrupted Monocryl suture. Steri-Strips and bandages were applied. Scrotum was checked at the end the shari e and contain both testicles. Patient was awoken and taken to PACU in stable condition. Grafts/Implants Used: Bilateral ProGrip mesh Admit VTE Documentation VTE Mechan Device Prophylaxis: SCD's
--- NOTE | 2021-11-07 10:26 | EX.PCM.DISCH ---
Discharge Instructions Procedure Hernia Diet Discharge Diet: Light diet - advance as tolerated Activity Discharge Activity: May Not Drive (for 2-3 days or while taking narcotic pain meds.) and May Shower (with the bandage in place 1-2 days after surgery.) Lifting Restrictions: 20 pounds for 8 weeks. Additional Activity Instructions:: Climbing stairs is fine, walking is encouraged. Sitting in bed may be uncomfortable. Sitting up using your lateral muscles (sitting up sideways) is usually more comfortable. Do not drive, work heavy equipment of sign legal documents for 24 hours. If your hernia repair was an ingunial repair, you may have scrotal swelling, an ice pack and/or athletic support can provide more comfort. Pain medications may cause nausea, you should typically eat light foods as you take your pain medications. Pain medications may also cause constipation. If you have difficulty with this, discuss with your doctor. Dressing / Incision Call your doctor if your incision/area has: Continuous Slow Oozing, Sudden Increased Bleeding, Increased Pain/ Swelling, Increased Redness and Foul Smelling Discharge Call your doctor if you observe: Fever of 101 or Higher Suture Line Care: Avoid Pulling/Pushing and Avoid Pinching/Bending Follow Up Care Test Results: Test results from this visit will be discussed in further detail at your follow-up appointment, if applicable. Discharge Plan Admission Attending Provider: Erik Rodriguez Primary Care Provider: Devante Zaragoza Discharge Orders/Prescriptions Prescriptions: No Action multivitamin,sk-maxa-lpuoqdbi tablet 1 tablet PO DAILY RF: 0 zinc 50 mg tablet 50 mg PO DAILY RF: 0 ascorbic acid (vitamin C) 500 mg capsule 500 mg PO DAILY RF: 0 nifedipine 30 mg tablet extended release 24hr 30 mg PO QDAY Qty: 90 RF: 3 telmisartan-hydrochlorothiazid 80-25 mg tablet 1 tab PO QDAY Qty: 90 RF: 3 metoprolol succinate 50 mg tablet extended release 24 hr 50 mg PO QHS RF: 0
--- NOTE | 2021-11-07 10:28 | EX.PCM.DISCH ---
Discharge Instructions Procedure Hernia Diet Discharge Diet: Light diet - advance as tolerated Activity Discharge Activity: May Not Drive (for 2-3 days or while taking narcotic pain meds.) and May Shower (with the bandage in place 1-2 days after surgery.) Lifting Restrictions: 20 pounds for 4 weeks. Additional Activity Instructions:: Climbing stairs is fine, walking is encouraged. Sitting in bed may be uncomfortable. Sitting up using your lateral muscles (sitting up sideways) is usually more comfortable. Do not drive, work heavy equipment of sign legal documents for 24 hours. If your hernia repair was an ingunial repair, you may have scrotal swelling, an ice pack and/or athletic support can provide more comfort. Pain medications may cause nausea, you should typically eat light foods as you take your pain medications. Pain medications may also cause constipation. If you have difficulty with this, discuss with your doctor. Dressing / Incision Call your doctor if your incision/area has: Continuous Slow Oozing, Sudden Increased Bleeding, Increased Pain/ Swelling, Increased Redness and Foul Smelling Discharge Call your doctor if you observe: Fever of 101 or Higher Suture Line Care: Avoid Pulling/Pushing and Avoid Pinching/Bending Remove Dressing in: 2 days (Remove clear bandages in 2 days, remove Steri-Strips in 7 to 10 days.) Cleanse incision/area with: Soap & Water Follow Up Care Please Follow Up With: Erik Rodriguez MD When: Please call to schedule 2 week follow up appointment. [phone] Test Results: Test results from this visit will be discussed in further detail at your follow-up appointment, if applicable. Discharge Plan Admission Attending Provider: Erik Rodriguez Primary Care Provider: Devante Zaragoza Discharge Orders/Prescriptions Prescriptions: New oxycodone-acetaminophen [Percocet] 5-325 mg tablet 1 tab PO Q6H PRN (Reason: pain) 5 Days Qty: 10 RF: 0 No Action multivitamin,ys-txay-beilyqqk tablet 1 tablet PO DAILY RF: 0 zinc 50 mg tablet 50 mg PO DAILY RF: 0 ascorbic acid (vitamin C) 500 mg capsule 500 mg PO DAILY RF: 0 nifedipine 30 mg tablet extended release 24hr 30 mg PO QDAY Qty: 90 RF: 3 telmisartan-hydrochlorothiazid 80-25 mg tablet 1 tab PO QDAY Qty: 90 RF: 3 metoprolol succinate 50 mg tablet extended release 24 hr 50 mg PO QHS RF: 0 Referrals / Follow Up: Devante Zaragoza DO [Primary Care Provider] - Disposition Disposition (needs filled in before D/C Order can be placed): Home, Self Care
[2021-11-07 10:38] VITALS: BP 111/68; BP 150/76; PULSE 63; RESP 16; TEMP 37; O2SAT 97
[2021-11-07 10:45] VITALS: BP 116/72; BP 150/76; PULSE 60; RESP 16; O2SAT 97
[2021-11-07 11:00] VITALS: BP 107/71; BP 150/76; PULSE 57; RESP 16; O2SAT 96
[2021-11-07 11:15] VITALS: BP 118/75; BP 150/76; PULSE 53; RESP 16; TEMP 36.9; O2SAT 97
[2021-11-07 12:32] VITALS: BP 124/74; BP 150/76; PULSE 62; RESP 16; TEMP 36.6; O2SAT 94
== END 2021-11-07 23:59 | disposition home or self-care (01) ==
LOC: SDC 07:54 → AC 07:56
PROVIDERS: Anesthesiology; PCP Family Medicine; Referring Provider Surgery; Visit Provider Surgery
PROC: (CPT 49650; principal; 2021-11-07 09:10)
DX: K40.20 Bilateral inguinal hernia, without obstruction or gangrene, not specified as recurrent (principal); F17.200 Nicotine dependence, unspecified, uncomplicated; I10 Essential (primary) hypertension; M19.90 Unspecified osteoarthritis, unspecified site; Z79.899 Other long term (current) drug therapy; N40.0 Benign prostatic hyperplasia without lower urinary tract symptoms; M48.00 Spinal stenosis, site unspecified; D17.6 Benign lipomatous neoplasm of spermatic cord; R94.31 Abnormal electrocardiogram [ECG] [EKG]; I45.9 Conduction disorder, unspecified; Z86.79 Personal history of other diseases of the circulatory system
CPT/HCPCS: 49650; S2900; 00830; 36415; 80048; 80076; 85027; 85610; 85730; 87426; 88302; 88304; 93005; C9803; J7120; J2405

== ENCOUNTER 2021-12-16 07:51 | Outpatient (CLI) | payer MEDICARE, SELFPAY ==
--- NOTE | 2021-12-16 07:55 | MRI_ITS ---
STUDY: MR PELVIS WITH AND WITHOUT CONTRAST (PROSTATE) REASON FOR EXAM: Male, 66 years old. Elevated PSA TECHNIQUE: Standardized multiparametric prostate MRI with T1, T2, DWI/ADC sequences were obtained in 3 orthogonal planes, and dynamic contrast enhancement sequences. ml of 15ML DOTAREM contrast material was administered intravenously for the contrast portion of the examination. . COMPARISON: None. FINDINGS: The prostate volume measures 49 mm3. The contours of the prostate gland are smooth. There is not mass effect on the bladder base. The transition zone is homogenous. PI-RADS DWI score 2 - Hypointense within a BPH nodule on ADC. PI-RADS T2W score 2 - A mostly encapsulated nodule OR a homogeneous circumscribed nodule without encapsulation (atypical nodule) or a homogeneous mildly hypointense area between nodules.. Contrast enhancement no early or contemporaneous enhancement; or diffuse multifocal enhancement NOT corresponding to a focal finding on T2W and/or DWI or focal ehancement responding to a lesion demonstrating features of BPH onT2WI (including features of extruded BPH in the PZ). The peripheral zone is homogenous. PI-RADS DWI score 1 - No abnormality (normal) on ADC or high b-value DWI. PI-RADS T2W score 1 - Uniformaly hyperintense (normal). Contrast enhancement no early or contemporaneous enhancement; or diffuse multifocal enhancement NOT corresponding to a focal finding on T2W and/or DWI or focal enhancement responding to a lesion demonstrating features of BPH onT2WI (including features of extruded BPH in the PZ). The seminal vesicles demonstrate normal margins and T2 signal pattern. No mass lesion or invasion depicted. The rectoprostatic angles are normal. Urinary bladder is normal without wall thickening. The vascular structures of the are normal. The visualized hollow viscus structures are normal. Small fat-containing bilateral inguinal hernias. No bone marrow edema or mass lesion depicted. MRI/Pelvis W/WO Contrast IMPRESSION: 1. PIRADS v2.1 2019 -- 2 - Low (clinically significant cancer is unlikely). Electronically Signed: Tomas Albright MD (Brooks) at 16:46 EDT Reading Location ID and State: [address] [place] [address] , Service support ,
[2021-12-16 08:41] LABS: CREATININE FINGERSTICK < 0.6 mg/dL (0.70-1.30); EGFR FINGERSTICK > 60.0000 mL/min (>60)
== END 2021-12-16 23:59 | disposition home or self-care (01) ==
LOC: MRI 07:51
PROVIDERS: PCP Family Medicine; Referring Provider Urology; Visit Provider Urology
DX: R97.20 Elevated prostate specific antigen [PSA] (principal); N40.1 Benign prostatic hyperplasia with lower urinary tract symptoms
CPT/HCPCS: 72197; A9575

== ENCOUNTER → 2022-04-17 | Outpatient (CLI) | payer MEDICARE, SELFPAY ==
[2022-04-17 12:54] LABS: PSA,Total - Annual Screen 6.06 ng/mL (0.00-4.00)
== END | disposition home or self-care (01) ==
LOC: LAB 11:09
PROVIDERS: PCP Family Medicine; Visit Provider Urology
DX: R97.20 Elevated prostate specific antigen [PSA] (principal); Z12.5 Encounter for screening for malignant neoplasm of prostate
CPT/HCPCS: 36415; 84153; G0103

== ENCOUNTER → 2022-07-31 | Outpatient (CLI) | payer MEDICARE, SELFPAY ==
--- NOTE | 2022-07-31 07:50 | CT_ITS ---
STUDY: CT SCAN LOWER EXTREMITY LEFT REASON FOR EXAM: Male, 67 years old. LEFT KNEE PAIN FOR PREOP RADIATION DOSAGE (If Supplied By Facility): CTDIvol = ( 18.76 ) mGy, DLP = ( 1219.76 ) mGycm. Individualized dose optimization techniques were used for this CT.? TECHNIQUE: Multiple axial tomographic images of the left lower extremity were obtained without intravenous contrast administration. Coronal and sagittal reconstruction was obtained as well. COMPARISON: None. FINDINGS: Imaging of the left hip joint was performed. The joint space is well-maintained. Mild degree of increased bony density overlying the greater trochanter suggestive of a possible calcific bursitis. Imaging of the knee joint was obtained. There is a marked degree of joint space narrowing of the medial compartment of knee joint with degenerative spur formation. There is a 3.4 cm x 2.5 cm cystic lucency in the medial femoral condyle. Lateral to this dominant cystic nodule, there is a similar-appearing 1.6 x 1.7 cm lucency. This extends from the epiphysis to the metaphysis. Moderate degree of joint space narrowing involving the lateral compartment of knee joint with chondrocalcinosis. Large septated joint effusion. Degenerative spur formation is also seen along the posterior tibial plateau. There is also evidence of a calcification of the synovium. Osteochondromatosis should be ruled out. Imaging of the ankle joint was obtained. There is evidence of a talar beak. CT/Extremity Lower without Contra IMPRESSION: Degenerative changes of the knee joint as described with cystic changes in the medial distal femoral condyle. Large joint effusion. Electronically Signed: Aaron Serrano MD at 10:47 EDT ,
== END | disposition home or self-care (01) ==
LOC: CT 07:40
PROVIDERS: PCP Family Medicine; Referring Provider Student in an Organized Health Care Education/Training Program; Visit Provider Student in an Organized Health Care Education/Training Program
DX: M17.32 Unilateral post-traumatic osteoarthritis, left knee (principal); M25.562 Pain in left knee
CPT/HCPCS: 73700; 77073

== ENCOUNTER 2022-09-11 05:25 | Day surgery (SDC) | payer MEDICARE, SELFPAY ==
--- NOTE | 2022-07-31 08:20 | RAD_ITS ---
STUDY: BONE LENGTH SCANOGRAM''S REASON FOR EXAM: Male, 67 years old. PREOP TECHNIQUE: Frontal imaging of both lower extremities was performed with measurement. COMPARISON: None. FINDINGS: No leg length discrepancy is seen. Marked degree of osteoarthritis and joint space narrowing of both knee joints worse on the left side. RAD/Bone Length IMPRESSION: No evidence of bone length discrepancy. Electronically Signed: Aaron Serrano MD at 11:07 EDT ,
[2022-07-31 09:21] LABS: Absolute Lymphocyte Count 1.51 X10^3/uL (0.83-4.51); Absolute Neutrophil Count 5.5 X10^3/uL (2.0-7.7); Basophil# 0.07 X10^3/uL; Basophil% 0.9 % (0-1); Eosinophil# 0.07 X10^3/uL; Eosinophils% 0.9 % (0-5); Hematocrit 47.5 % (40-54); Hemoglobin 16.2 g/dL (13.0-16.5); Lymphocyte # 1.51 X10^3/ul (0.83-4.51); Lymphocyte % 19.2 % (19-41); Mean Corp Hgb Conc 34.1 g/dL (32-36); Mean Corpuscular Hgb 33.4 pg (27.0-32.0); Mean Corpuscular Volume 97.9 fL (80-94); Mean Platelet Vol. 9.7 fl (6.2-12.0); Monocyte# 0.68 X10^3/uL; Monocyte% 8.6 % (0-10); NRBC Flagged by Analyzer 0 % (0-5); Neutrophil # 5.53 X10^3/uL (2.7-7.7); Neutrophil % 70.1 % (47-70); Platelet Count 250 K/mm3 (150-450); RBC Distribution Width CV 12.5 % (11.6-14.6); RBC Distribution Width SD 45.2 fl (35.1-43.9); Red Blood Count 4.85 M/mm3 (4.6-6.2); White Blood Count 7.9 K/mm3 (4.4-11.0)
[2022-07-31 09:38] LABS: Prothrombin Time (Protime)PT. 13.3 SECONDS (11.7-14.9)
[2022-07-31 09:39] LABS: Hemoglobin A1c 5.3 % (3.8-5.6); Partial Thromboplast Time 34.3 Seconds (24.1-36.2)
[2022-07-31 09:57] LABS: Anion Gap 4 (5-15); BUN 15 mg/dL (7-18); BUN/Creat Ratio 20.4 RATIO (10-20); Calcium,Total 9.3 mg/dL (8.5-10.1); Chloride 99 mmol/L (98-107); Creatinine, Serum 0.74 mg/dL (0.70-1.30); EST Glomerular Filtration Rate 112 mL/min (>60); Est Glom Filt Rate - Afr Amer 136 mL/min (>60); Glucose 115 mg/dL (74-106); Potassium 3.8 mmol/L (3.5-5.1); Sodium Level 134 mmol/L (136-145)
[2022-07-31 10:02] LABS: AST(SGOT) 20 U/L (15-37); Alanine Aminotransfer ALT/SGPT 28 U/L (16-61); Albumin, Serum 3.7 g/dL (3.2-5.0); Alkaline Phosphatase 79 U/L (45-117); Globulin 3.1 g/dL (2.2-4.2); Magnesium 2.2 mg/dL (1.6-2.6); Protein, Total 6.8 g/dL (6.4-8.2)
[2022-08-14] MEDS: Lactated Ringers 1,000 ML 999 ML IV (05:45)
[2022-08-14] MEDS: Celecoxib 200 MG Capsule 400 MG PO (06:07)
[2022-08-14] MEDS: Acetaminophen 500 MG Tablet 1000 MG PO (06:07)
[2022-08-14] MEDS: Gabapentin 600 MG Tablet PO (06:08)
[2022-08-14 06:21] VITALS: BP 151/73; PULSE 55; RESP 18; TEMP 36.4; O2SAT 94; BMI 25.2
[2022-08-14 06:35] LABS: Bedside Glucose 100 mg/dL (74-106)
--- NOTE | 2022-09-05 10:25 | RAD_ITS ---
INDICATION: proep EXAMINATION/TECHNIQUE: X-RAY - XR Chest 2 Views COMPARISON: March 11, 2020 FINDINGS: LINES/DEVICES: None. LUNGS: No consolidation, edema or effusion. No pneumothorax. MEDIASTINUM AND CARDIOVASCULAR STRUCTURES: Cardiac silhouette not enlarged. Central airways and mediastinal contour are unremarkable. BONES AND SOFT TISSUES: Dorsal spine instrument scoliosis and degenerative changes. RAD/Chest PA and Lateral IMPRESSION: No radiographic evidence of acute cardiopulmonary disease. Electronically Signed: Americo Dominguez MD at 18:13 EST ,
[2022-09-05 10:26] LABS: Absolute Neutrophil Count 4.7 X10^3/uL (2.0-7.7); Basophil# 0.05 X10^3/uL; Basophil% 0.7 % (0-1); Eosinophil# 0.08 X10^3/uL; Hematocrit 49.6 % (40-54); Hemoglobin 16.3 g/dL (13.0-16.5); Lymphocyte % 27.5 % (19-41); Mean Corp Hgb Conc 32.9 g/dL (32-36); Mean Corpuscular Hgb 32.1 pg (27.0-32.0); Mean Corpuscular Volume 97.6 fL (80-94); Mean Platelet Vol. 9.9 fl (6.2-12.0); Monocyte% 9.2 % (0-10); NRBC Flagged by Analyzer 0 % (0-5); Neutrophil # 4.69 X10^3/uL (2.7-7.7); Neutrophil % 61.3 % (47-70); Platelet Count 256 K/mm3 (150-450); RBC Distribution Width CV 12.1 % (11.6-14.6); RBC Distribution Width SD 44.2 fl (35.1-43.9); Red Blood Count 5.08 M/mm3 (4.6-6.2); White Blood Count 7.6 K/mm3 (4.4-11.0)
[2022-09-05 10:58] LABS: Albumin, Serum 3.8 g/dL (3.2-5.0); Anion Gap 3 (5-15); BUN 9 mg/dL (7-18); BUN/Creat Ratio 12.7 RATIO (10-20); Calcium,Total 9.4 mg/dL (8.5-10.1); Chloride 97 mmol/L (98-107); Creatinine, Serum 0.71 mg/dL (0.70-1.30); EST Glomerular Filtration Rate 117 mL/min (>60); Est Glom Filt Rate - Afr Amer 142 mL/min (>60); Glucose 115 mg/dL (74-106); Sodium Level 134 mmol/L (136-145)
[2022-09-05 11:02] LABS: Hemoglobin A1c 5.7 % (3.8-5.6)
[2022-09-11] VITALS (9 sets, daily range): BP systolic 110–133; BP diastolic 58–95; PULSE 58–70; RESP 16; TEMP 36.6–37.4; O2SAT 91–97; BMI 25.2
[2022-09-11] MEDS: Lactated Ringers 1,000 ML 15 ML IV (06:23)
[2022-09-11] MEDS: Gabapentin 600 MG Tablet PO (06:46)
[2022-09-11] MEDS: Celecoxib 200 MG Capsule 400 MG PO (06:47)
[2022-09-11] MEDS: Acetaminophen 500 MG Tablet 1000 MG PO (06:47)
--- NOTE | 2022-09-11 07:30 | KNEE_PTH ---
PATIENT: BARBARA TIRADO LOC: [facility] [place] U#:[id number] AGE/SX: 67/M ROOM: RE09/11/[address]: Dr. Yeyo Quiles DO : 1955 BED: DIS: 09/11/2022 SPEC #: [id number] RECD: 09/11/22 12:01 STATUS: SHIVA REValdez #: [id number] GARFIELD: 09/11/22 07:[address]: Yeyo Quiles DEPT: SURGICAL PATHOLOGY RECD BY: Nicole Campos ENTERED: 09/11/22 12:26 SP TYPE: TOTAL KNEE OTHR DR: Dr. Devante Zaragoza, DO Tissues: Knee, NOS Procedures: Decalcification bone/plaque Surgery Specimen Level IV HEADER OPERATION: ERAS, total knee replacement robotic arm assist PRE-OP DIAGNOSIS: Posttraumatic osteoarthritis left knee TISSUE SUBMITTED: Patella, tibia and fibula bone and tissue MICROSCOPIC DIAGNOSIS Patella, tibia and fibula bone and tissue, total knee replacement/resection: Pieces of bone with degenerative osteoarthritic changes. CHUCK:dillon 09/17/2022 MICROSCOPIC DESCRIPTION Slides are reviewed. GROSS DESCRIPTION Received is one container designated patella, tibia and fibula bone and tissue. The specimen consists of multiple fragments of chan-yellow bone measuring in aggregate 15 x 15 x 4 cm. No soft tissue is identified. A disc-like structure is noted, may represent portion of patella, which measures 4 x 3 x 0.5 cm. A number of bony fragments contain articular surfaces consistent with tibial plateau and femoral condyle and displaying prominent osteophyte formation, eburnation, and bone erosion. Decorating And Assembly Supervisor sections are submitted in two cassettes after decalcification. / CHUCK:dillon 09/11/2022 TC:5 CPT: 82083, 94205
[2022-09-11] MEDS: Cefazolin 2 GM in 0.9% Normal Saline 100 ML IV (07:42)
[2022-09-11] MEDS: TXA 1000mg in NS100 100ml (IVPB at Incision) 660 MG IV (07:54)
[2022-09-11 08:00] LABS: Bedside Glucose 94 mg/dL (74-106)
[2022-09-11] MEDS: TXA 1000mg in NS100 100ml (IVPB at Closure) 660 MG IV (10:10)
--- NOTE | 2022-09-11 10:45 | RAD_ITS ---
EXAM: XR LEFT KNEE, 1 OR 2 VIEWS CLINICAL INDICATION: post-op L TKA -- in PACU TECHNIQUE: Frontal and/or lateral views of the left knee. This report was created using [email or web address] report generation technology. COMPARISON: Recent CT of left lower extremity July 31, 2022, prior to total knee prosthesis. FINDINGS: BONES/JOINTS: Recent postoperative change with anterior surgical clips and intra-articular air. Total knee prosthesis components appear well-positioned and well aligned with no evidence of loosening or malplacement. No acute fracture. Preservation of the joint space. No sclerotic or destructive changes observed. SOFT TISSUES: Unremarkable. No soft tissue swelling or gas. No radiopaque foreign body. RAD/Knee 1 or 2 Views IMPRESSION: Recent postoperative change. Well-positioned components. Electronically Signed: Radha Hodge MD at 8:16 EST ,
--- NOTE | 2022-09-11 12:47 | DCINST_ITS ---
Discharge Instructions Follow Up Care Test Results: Test results from this visit will be discussed in further detail at your follow- up appointment, if applicable. Discharge Plan Admission Primary Reason for Your Visit: Left total knee replacement Attending Provider: Yeyo Quiles Primary Care Provider: Devante Zaragoza Instructions Additional Instructions / Restrictions: Follow preprinted instructions from your surgeons office Discharge Orders/Prescriptions Prescriptions: No Action multivitamin,sm-zgnv-zjrqsequ tablet 1 tablet PO DAILY zinc 50 mg tablet 50 mg PO DAILY ascorbic acid (vitamin C) 500 mg capsule 500 mg PO DAILY metoprolol succinate 50 mg tablet extended release 24 hr 50 mg PO QHS Qty: 90 3RF nifedipine 30 mg tablet extended release 24hr 30 mg PO QDAY Qty: 90 3RF Rx Instructions: do not crush or chew telmisartan-hydrochlorothiazid 80-25 mg tablet 1 tab PO QDAY Qty: 90 3RF Other Ambulatory Orders: 12 Lead EKG (Routine) Timeframe: [id number] Location: None Selected Ordered By: Dr. Stephen Elise Referrals / Follow Up: Devante Zaragoza DO [Primary Care Provider] - Yeyo Quiles DO [Med Staff - Active Staff] - Disposition Disposition (needs filled in before D/C Order can be placed): Home, Self Care
[2022-09-11] MEDS: Lactated Ringers 1,000 ML 125 ML IV (13:00)
[2022-09-11] MEDS: oxyCODONE 5 MG Tablet PO (13:11)
--- NOTE | 2022-09-11 13:51 | OP.PCM_ITS ---
Report of Operation Date of Procedure: 09/11/22 Description of Surgical Findings:: Preoperative diagnosis: Left knee primary osteoarthritis Postoperative diagnosis: Left knee primary osteoarthritis Procedure: Cemented left total knee arthroplasty Surgeon: Yeyo Quiles DO Nuclear Weapons Specialist: DEA Henson Anesthesia: Spinal with sedation, adductor canal block Anesthesiologist: Dr. Hatch Complications: None apparent Drains: None Estimated blood loss: 100 cc Urinary output: None recorded IV fluids: 2000 cc crystalloid Specimens: Total knee resections Surgical implants: Keturah triathlon total stabilizer femoral component size #6 left, femoral posterior augment 10 mm, femoral distal augment 15 mm, X3 asymmetric patella size 35, 6.5 mm low-profile hex head screw 35 mm length, triathlon fluted stem 20 mm diameter by 100 mm length, triathlon total knee cemented stem diameter 12 mm x 50 mm length, triathlon total knee universal tibial baseplate size #6, triathlon next 3 tibial bearing insert PS size number 6 x 11 mm thickness Indications: This is a 67-year-old male seen in the outpatient setting diagnosed with left knee osteoarthritis with significant varus deformity. He failed nonoperative management with intra-articular corticosteroid injections, activity modification, bracing, [id number] analgesics. X-rays revealed grade 4 medial compartment changes. He also had significant patellofemoral arthritis. I recommended a left total knee arthroplasty. The risk, benefits, alternatives to procedure reviewed with patient at length and he agreed to proceed. Risks included but were not limited to bleeding, infection, loss of life or limb, need for additional surgery, persistent pain, intraoperative or postoperative fracture, instability, loosening of components, wound complications, stiffness, neurovascular injury, DVT or PE. Patient expressed understanding these risks and wished to proceed with surgery. Informed consent was obtained in the outpatient setting. Preoperative CT demonstrated a large medial femoral condylar subchondral cyst. Revision components were made available given the complexity and bone loss. Description of procedure: Patient was identified in the preoperative holding area by name, medical record number, and date of . Informed set was confirmed with the patient. The operative knee was marked with a surgical marker. At time of his procedure, patient brought to the operative suite and positioned supine a standard operating table. Anesthesia then administered a spinal anesthetic. He was then repositioned in the supine position with all bony prominences well-padded. We then placed a well-padded pneumatic tourniquet on the left upper thigh. The left upper extremity was brought across patient's chest throughout the procedure. We then prepped and draped the left lower extremity in a normal, sterile orthopedic fashion. We performed a timeout with all parties in attendance in agreement with the side, site, operation be performed. No concerns were voiced and would like to proceed with surgery. 2 g Ancef was administered prior to the incision by anesthesia staff as well as 1 g IV TXA. First exsanguinated the left lower extremity with a Esmarch bandage. Tourniquet was inflated to 250 mmHg. Esmarch was removed. I planned a standard midline approach to the left knee approximately 15 cm in length. Skin was sharply incised with a 10 blade scalpel developing full-thickness layers down to the retinaculum. Layers were developed identifying the VMO. I then planned a standard medial parapatellar arthrotomy performed in flexion. The anterior horn of the medial meniscus was released. Hoffa's fat pad was then released. I then everted the patella in extension and brought the knee into 90 degrees of flexion. The anterior horn of the lateral meniscus was then released. There is a large notch osteophyte which was removed with combination of osteotome and rongeur. The ACL appeared to be chronically torn. I released the PCL with a posterior drawer and Bovie cautery. We then brought the knee back into extension. I measured the outer diameter of the patella to be approximately 46 mm, a patellar reamer was then selected. I measured the thickness of the patella to be 28 mm. I then reamed the patella to a depth of approximately 15 mm. A protective baseplate was then placed on the patella. I then placed pins in the metaphyseal distal femur medial to lateral for the Steve arrays. In similar fashion, I made a 2 cm incision approximately a handsbreadth distal to the tibial tubercle along the medial aspect of the tibia, drilling 2 bicortical pins for the tibial array. The knee was brought into flexion. The patella was subluxed laterally but not everted. Medial lateral retractors were placed. We then utilized the Fieldglass software to confirm our planned surgical procedure and oriented with the patient's osseous anatomy. All checks with the Fieldglass system were confirmed. Patient had a significant fixed varus deformity after performing stress examination utilizing the Steve software. We elected to place the tibial baseplate in approximately 3 degrees of varus to allow for appropriate balancing. Sawblade was then brought in. I first started with the tibial cut, ensuring protection of the MCL and patellar tendon. A tibial wafer was then excised. I then proceeded to make the posterior femoral, anterior, anterior chamfer cuts with the same blade. Ligaments were protected with Intermedics retractors. Sawblade was then exchanged to perform the distal femoral and posterior chamfer cuts. The robot was then removed from the surgical field. Remaining loose bone and meniscus was excised carefully. Posterior osteophytes were removed from the distal femur with a curved osteotome and rongeur. Large medial condylar subchondral cavitary cyst was noted. Typical cystic fluid was suctioned down. Cyst patel were debrided with curette and Bovie cautery. I drilled the patel of the cyst to encourage bony bleeding. Cyst defect measured 3 cm in the axial plane and 2 cm anterior to posterior and 1 cm medial to lateral. I then proceeded with planning for augments along the medial femoral condyle. I drilled for intramedullary femoral stem in standard fashion. We sequentially reamed to a diameter of 20 mm with cortical chatter at 150 mm length. Distal femoral cutting jig was then applied to the femoral reamer cutting for a distal medial augment a 15 mm. Approximately 5 mm of cyst remained in the axial plane. I then cut for a 10 mm posterior augment the medial femoral condyle after cutting jigs were exchanged. I freshen the remaining anterior and chamfer cuts. I then turned my attention to the tibia. Size #6 tibial baseplate was selected and pinned in place. We then reamed to a 12 mm diameter for a short tibial stem of 50 mm. I then punched for the keel of the tibial baseplate. Trials were then placed. I utilized a PS poly of 11 mm length. Balance was excellent in full extension, mid flexion, and 90 degrees. Patient had achieved full extension with 11 mm poly-. Trials were then removed. I then placed a 35 mm 6.5 mm hex head screw to act as rebar in the remaining cyst. We then copiously irrigated the wound with normal saline solution. Pe riarticular block was administered. The wound was copiously irrigated with normal saline solution. Simplex cement was then mixed on the back table. Components were then cemented in place with excess cement being removed. Cement was placed and pressurized in the tibial canal prior to placement of the tibial stem and baseplate. Hybrid fixation was utilized on the femur with press-fit femoral stem in standard femoral component cementation. The remaining cyst was filled with Simplex cement. Cement was allowed to cure with the components in full extension utilizing a 11 mm trial polyethylene component. Patella was cemented in place in standard fashion. While the cement was curing, Betadine solution was irrigated into the wound and the wound edges. After cement had cured fully, trial polyethylene was removed. Tourniquet was deflated. Hemostasis was excellent. An additional 1 g TXA was administered IV. I selected a size 11 mm mm polyethylene PS insert which was placed and impacted per modern languages professor recommendations. Final components appeared very well balanced with excellent range of motion. There is no significant remaining flexion contracture. The wound was copiously irrigated with normal saline solution. Capsule was closed watertight with #1 strata fix barbed suture. Deeper report muscle layer was reapproximated with 0 Vicryl suture. Dermis was reapproximated buried interrupted 2-0 Vicryl suture. Skin was finally reapproximated columba. Patient tolerated the procedure well without apparent complication. He was safely awakened in the operative suite, transferred to his hospital bed and subsequently to PACU in stable condition. Post Operative Plan: Plan for discharge home today. Mobilize with physical therapy and nursing staff. Weightbearing: Range of motion and weightbearing as tolerated left lower extremity. Antibiotics: 1 g Ancef prior to discharge DVT Prophylaxis: Aspirin 81 mg twice daily starting postoperative day #1 Fernandez: None Dressing: Maintain silver dressing x5 days X-Rays: 2-week x-rays in the office. Follow-up: 2 weeks in my office for staple removal
[2022-09-11] MEDS: Cefazolin 1 GM/50 ML BAG IV (14:00)
[2022-09-11] MEDS: Ketorolac 30 MG/ML Syringe IV (14:29)
== END 2022-09-11 15:45 | disposition home or self-care (01) ==
LOC: SDC 05:25 → AC 05:25
PROVIDERS: Anesthesiology; PCP Family Medicine; Referring Provider Student in an Organized Health Care Education/Training Program; Visit Provider Student in an Organized Health Care Education/Training Program
PROC: 0SRD0JZ Replacement of Left Knee Joint with Synthetic Substitute, Open Approach (ICD-10-PCS; CPT 27447; principal; 2022-09-11 07:00)
DX: M17.12 Unilateral primary osteoarthritis, left knee (principal); M21.162 Varus deformity, not elsewhere classified, left knee; F17.210 Nicotine dependence, cigarettes, uncomplicated; I10 Essential (primary) hypertension; Z79.899 Other long term (current) drug therapy
CPT/HCPCS: 27447; 01402; 64450; 36415; 71046; 73560; 80048; 80076; 82040; 82962; 83036; 83735; 85025; 85610; 85730; 87077; 87081; 88305; 88311; 93005; 97162; C1776; J7120; A4216; J2405; J3475

== ENCOUNTER → 2022-11-28 | Outpatient (CLI) | payer MEDICARE, SELFPAY ==
--- NOTE | 2022-11-28 08:34 | CT_ITS ---
PROCEDURE: CT RIGHT KNEE WITHOUT CONTRAST REASON FOR EXAM: Male, 67 years old. Preoperative planning for the MakoPlasty Robotic knee surgery. Knee pain. TECHNIQUE: Transaxial CT of the hip, knee and ankle were obtained. Coronal and sagittal reconstruction images of the knee were provided. Individualized dose optimization techniques were used for this CT. COMPARISON: None. FINDINGS: Standard protocol for the preoperative planning for the MakoPlasty robotic knee surgery was performed. Osteopenia. Mild arthrosis of the right hip with soft tissue calcification adjacent to the right lateral acetabulum. Mild to moderate tricompartmental arthrosis of the knee. Mild arthrosis of the tibiotalar joint. CT/Extremity Lower without Contra IMPRESSION: Preoperative MakoPlasty Robotic knee surgical CT evaluation with findings as described above. Electronically Signed: Nazario Smith, at 9:36 EST ,
== END | disposition home or self-care (01) ==
LOC: CT 08:17
PROVIDERS: PCP Family Medicine; Referring Provider Student in an Organized Health Care Education/Training Program; Visit Provider Student in an Organized Health Care Education/Training Program
DX: M25.561 Pain in right knee (principal)
CPT/HCPCS: 73700

== ENCOUNTER 2022-12-11 07:34 | Day surgery (SDC) | payer MEDICARE, SELFPAY ==
--- NOTE | 2022-11-24 12:15 | PCM.HP.BLA ---
History and Physical History and Physical? Patient Name: Ifeanyi Prather : 1955 From:? ROBERT FOUNTAIN PA-C? DATE OF SURGERY:? 12/11/2022 SCHEDULED PROCEDURE:? Right total knee arthroplasty HISTORY OF PRESENT ILLNESS: Preoperative history and physical exam was performed on November 24, 2022.? This is a 67-year-old male whose had ongoing pain in bilateral knees.? Patient recently on September 11, 2022 underwent a left total knee arthroplasty.? He is doing well from that procedure.? He has continued to have ongoing right knee pain which has been dull and sore.? He has difficulty with activities of daily living including leisure activity such as hunting and hiking.? He has pain going up and down stairs and walking.? Pain is located over the medial aspect of the knee.? Patient has attempted rest, ice, heat, elevation with minimal relief.? He has been through previous physical therapy with his left knee working on his right knee exercises without relief.? He has attempted bracing in the past without relief.? Patient denies previous surgery on the right knee.? After failing conservative measures and discussing all treatment options with Dr. Salvador Quiles the patient does wish to proceed with a right total knee arthroplasty.? We have obtained previous surgical clearance from the primary care physician Dr. Devante Zaragoza prior to the left total knee arthroplasty.? There is been no new onset of medical problems.? He does have history of hypertension.? Currently denies any chest pain, short of breath, fevers chills or recent infections.? Denies past history of DVT or pulmonary embolism. REVIEW OF SYSTEMS: Review Of Systems: Constitutional: Denies anorexia, change in appetite, fever, difficulty sleeping, weight change. Cardiovasular: Reports irregular heartbeat, but denies chest pain, heart murmur and peripheral vascular disease. Respiratory: Denies asthma, cough, pneumonia, sleep apnea, shortness of breath, tuberculosis and wheezing. Gastrointestinal: Denies constipation, diarrhea, heartburn, nausea, rectal itching, bloody stools and vomiting. Genitourinary: Denies incontinence. Musculoskeletal: Reports gait disturbance, leg swelling, pain, stiffness and weakness. Skin: Denies Raynaud's, history of shingles and tattoo. Neurological: Denies ambulatory dysfunction, dizziness, numbness/tingling and tremor. Psychiatric: Denies anxiety, depression, insomnia, mental illness and stress. Hematologic/Lymphatic: Denies anemia, bleeding/bruising tendency and past transfusion. Reviewed and updated. PAST MEDICAL HISTORY: Advance Care Plan: No Advance Directives Effective Date: 07/04/2022 Past Medical History: Medical Problems: Arthritis, High Blood Pressure Accidents: LT Knee Injury - (02/14/2014) WORK RELATED Surgical Hx: LT Knee Arthroscopy - (TWICE) Hernia Repair - (2021) LT Knee, Total Joint Replacement - (09/11/2022) Dr Elan Quiles @ [facility] Anesthesia Complications: None Assistive Devices: Glasses Reviewed, no changes. SOCIAL HISTORY: Social History: Marital: .Occupation: Welding Machine Operator Resistance - [employer].Work Status: Retired.Hand Dominance: Right-handed. Personal Habits:? Cigarette Use: Currently smokes.Smokeless Tobacco: Never Used Smokeless Tobacco.E-Cigarette Use: Never used.Alcohol: Occasionally.Drug Use: Denies Use.Enjoy Exercising: Never Exercises. Reviewed, no changes. VITALS: Ht: 69.5 Wt: 172lb Wt k.019 BMI: 25.0 BP: 128/86 Pulse: 67 Resp: 13 T: 97.8 T: 36.6C Pain Level: 1 O2SatR: 95 ALLERGIES: Penicillin Cashews Meloxicam - dizziness? MEDICATIONS: Oxycodone HCL 5 mg 1-2 tab by mouth every 6 hours, Telmisartan/Hydrochlorothiazide 80-25 mg 1po qday, Metoprolol Succinate ER 50 mg 1po qday, Procardia XL 30 mg 1poq day, Centrum? 1po qday, Vitamin C 500 mg 1 by mouth every day, Zinc 50MG? 1 PO every other day PRE-OP EXAM:? General appearance:NORMAL? ? ? Other: Eyes: Conjunctivae and lids: NORMAL? Pupils: ERR Ears, Nose, Mouth, and Throat: NORMAL? Other: Inspection of lips, teeth and gums: NORMAL? ?Other: Neck: Examination of neck: no masses noted. Respiratory: Assessment of respiratory effort: NORMAL? ?Other: ?Auscultation of lungs: clear to auscultation no wheezes, rhonchi or rales. Cardiovascular:? Auscultation of heart: regular rate and rhythm, no murmurs, gallops or rubs. PHYSICAL EXAMINATION: On exam of the right knee there is no erythema or signs of infection.? Patient has tenderness to palpation along the medial joint line.? Minimal tenderness laterally.? He does have fixed varus deformity.? Range of motion: Lacks 3 full extension to 120 flexion.? Stable to varus/valgus stress test, stable to anterior/posterior drawer exam with firm endpoint.? Patient does walk with a slight antalgic gait secondary to the right knee.? Patient is doing well from the left knee arthroplasty IMAGING STUDIES: Previous x-rays of the right knee reveal varus deformity with medial joint space narrowing, subchondral sclerosis, osteophyte formation consistent with severe stage IV medial compartment osteoarthritis.? There is deformity in the medial compartment.? There is also joint loss and osteophytes in the patellofemoral compartment. IMPRESSION: 1.? Severe right knee osteoarthritis with varus deformity 2.? Presence of left total knee arthroplasty: September 11, 2022 3.? Hypertension PLAN: Dr. Salvador Quiles did discuss and review with the patient all treatment options including surgical versus nonsurgical options.? Patient does wish to proceed with the above-stated procedure.? Potential risks, benefits, and complications of the procedure were discussed in detail including but not limited to , infection, nerve and blood vessel damage, persistent pain, numbness, tingling, paresthesias, blood clot, pulmonary embolism, and requirement for possible further surgery.? The patient expressed full understanding and has no further questions for the doctor.? Patient does agree to proceed with the above-stated procedure and has signed the surgery consent form. This dictation was created using voice recognition software. Phonetic and/or grammatical errors may exist. ___? I have re-examined the patient.? There are no clinical changes since date of exam. ___? See progress notes for changes. ___? Dictated on admission Date: ? ? ?Time: Signature:
[2022-11-28 08:39] LABS: Absolute Neutrophil Count 4.5 X10^3/uL (2.0-7.7); Basophil# 0.06 X10^3/uL; Basophil% 0.9 % (0-1); Eosinophil# 0.07 X10^3/uL; Eosinophils% 1.1 % (0-5); Hematocrit 50.3 % (40-54); Hemoglobin 16.4 g/dL (13.0-16.5); Lymphocyte % 19.8 % (19-41); Mean Corp Hgb Conc 32.6 g/dL (32-36); Mean Corpuscular Hgb 31.6 pg (27.0-32.0); Mean Corpuscular Volume 96.9 fL (80-94); Mean Platelet Vol. 9.5 fl (6.2-12.0); Monocyte# 0.64 X10^3/uL; Monocyte% 9.8 % (0-10); NRBC Flagged by Analyzer 0 % (0-5); Neutrophil # 4.46 X10^3/uL (2.7-7.7); Neutrophil % 67.9 % (47-70); Platelet Count 226 K/mm3 (150-450); RBC Distribution Width CV 13.2 % (11.6-14.6); RBC Distribution Width SD 46.8 fl (35.1-43.9); Red Blood Count 5.19 M/mm3 (4.6-6.2); White Blood Count 6.6 K/mm3 (4.4-11.0)
[2022-11-28 09:21] LABS: Anion Gap 8 (5-15); BUN 13 mg/dL (7-18); BUN/Creat Ratio 17.3 RATIO (10-20); Calcium,Total 9.1 mg/dL (8.5-10.1); Chloride 98 mmol/L (98-107); Creatinine, Serum 0.75 mg/dL (0.70-1.30); EST Glomerular Filtration Rate 109 mL/min (>60); Est Glom Filt Rate - Afr Amer 132 mL/min (>60); Glucose 137 mg/dL (74-106); Sodium Level 134 mmol/L (136-145)
[2022-11-28 10:37] LABS: Magnesium 2.1 mg/dL (1.6-2.6)
[2022-12-11] VITALS (7 sets, daily range): BP systolic 105–133; BP diastolic 59–77; PULSE 56–68; RESP 16–18; TEMP 36.6–37.2; O2SAT 92–97; BMI 25.4
[2022-12-11] MEDS: Lactated Ringers 1,000 ML 999 ML IV (08:21)
[2022-12-11] MEDS: Magnesium 1 GM over 15 mins IV (08:22)
[2022-12-11 08:25] LABS: Bedside Glucose 108 mg/dL (74-106)
[2022-12-11] MEDS: Celecoxib 200 MG Capsule 400 MG PO (08:26)
[2022-12-11] MEDS: Gabapentin 600 MG Tablet PO (08:27)
[2022-12-11] MEDS: Acetaminophen 500 MG Tablet 1000 MG PO (08:27)
[2022-12-11] MEDS: Cefazolin 2 GM in 0.9% Normal Saline 100 ML IV (09:50)
[2022-12-11] MEDS: TXA 1000mg in NS100 100ml (IVPB at Incision) 660 MG IV (09:58)
[2022-12-11] MEDS: dexAMETHasone 10 MG/ML Vial IV (10:08)
--- NOTE | 2022-12-11 10:10 | KNEE_PTH ---
PATIENT: BARBARA TIRADO LOC: [facility] [place][id number] AGE/SX: 67/M ROOM: RE12/11/[address]: Dr. Yeyo Quiles DO : 1955 BED: DIS: 12/11/2022 SPEC #: [id number] RECD: 12/11/22 13:15 STATUS: SHIVA REValdez #: [id number] GARFIELD: 12/11/22 10:[address]: Yeyo Quiles DEPT: SURGICAL PATHOLOGY RECD BY: Nicole Campos ENTERED: 12/12/22 07:57 SP TYPE: TOTAL KNEE OTHR DR: DO Hugh Burr PA-C Tissues: Knee, NOS Procedures: Decalcification bone/plaque Surgery Specimen Level IV HEADER OPERATION: ERAS, total knee replacement robotic arm assist PRE-OP DIAGNOSIS: Severe right knee osteoarthritis with varus deformity TISSUE SUBMITTED: Right knee bone and tissue MICROSCOPIC DIAGNOSIS Bone and soft tissue, right knee, total knee replacement/resection: Pieces of bone with degenerative osteoarthritic changes. Fibroadipose tissue, fibroconnective tissue and reactive synovial tissue. CHUCK:dillon 12/17/2022 MICROSCOPIC DESCRIPTION Slides are reviewed. GROSS DESCRIPTION Received is one container designated bone and soft tissue right knee. The specimen consists of multiple fragments of chan-yellow bone measuring in aggregate 12.0 x 10.0 x 3.5 cm. Also in the specimen container are multiple fragments of yellow-white soft tissue measuring in aggregate 4.0 x 2.5 x 1.0 cm. A number of bony fragments contain articular surfaces consistent with tibial plateau and femoral condyle and displaying prominent osteophyte formation, eburnation and bone erosion. An/Sqq 89(V)15 Sonar System Journeyman sections are submitted in two cassettes as follows: 1 - soft tissue, 2 - bone after decalcification. / CHUCK:dillon 12/12/2022 TC:5 CPT: 14018, 79775
[2022-12-11] MEDS: JPS (Morphine 10mg/ml) OPERA.SITE (11:10)
[2022-12-11] MEDS: TXA 1000mg in NS100 100ml (IVPB at Closure) 660 MG IV (11:26)
--- NOTE | 2022-12-11 12:20 | OP.PCM_ITS ---
Report of Operation Date of Procedure: 12/11/22 Description of Surgical Findings:: Preoperative diagnosis: Right knee primary osteoarthritis Postoperative diagnosis: Right knee primary osteoarthritis Procedure: Cemented right total knee arthroplasty Surgeon: Yeyo Quiles DO Brim Blocker: DEA Henson Anesthesia: Spinal with sedation, adductor canal block Anesthesiologist: Dr. Hatch Complications: None apparent Drains: None Estimated blood loss: 100 cc Urinary output: None recorded IV fluids: 1700 cc crystalloid Specimens: Total knee resections Surgical implants: [place]ur[place] triathlon X3 asymmetric patella size 35, triathlon cruciate retaining femoral #5, primary tibial baseplate #6, triathlon X3 tibial bearing insert CS 10 mm thickness Indications: This is a 67-year-old male seen in the outpatient setting diagnosed with right knee osteoarthritis with significant varus deformity. He failed nonoperative management with intra-articular corticosteroid injections, activity modification, bracing, [id number] analgesics. X-rays revealed grade 4 medial compartment changes. He also had significant patellofemoral arthritis. Patient underwent left total knee arthroplasty for left knee osteoarthritis 09/11/2022. He has done well in the postoperative course. I recommended a right total knee arthroplasty. The risks, benefits, alternatives to procedure reviewed with patient at length and he agreed to proceed. Risks included but were not limited to bleeding, infection, loss of life or limb, need for additional surgery, persistent pain, intraoperative or postoperative fracture, instability, loosening of components, wound complications, stiffness, neurovascular injury, DVT or PE. Patient expressed understanding these risks and wished to proceed with surgery. Informed consent was obtained in the outpatient setting. Description of procedure: Patient was identified in the preoperative holding area by name, medical record number, and date of . Informed consent was confirmed with the patient. The operative knee was marked with a surgical marker. At time of his procedure, patient brought to the operative suite and positioned supine a standard operating table. Anesthesia then administered a spinal anesthetic. He was then repositioned in the supine position with all bony prominences well-padded. We then placed a well-padded pneumatic tourniquet on the right upper thigh. The right upper extremity was brought across patient's chest throughout the procedure. We then prepped and draped the right lower extremity in a normal, sterile orthopedic fashion. We performed a timeout with all parties in attendance in agreement with the side, site, operation be performed. No concerns were voiced and would like to proceed with surgery. 2 g Ancef was administered prior to the incision by anesthesia staff as well as 1 g IV TXA. First exsanguinated the left lower extremity with a Esmarch bandage. Tourniquet was inflated to 280 mmHg. Esmarch was removed. I planned a standard midline approach to the left knee approximately 15 cm in length. Skin was sharply incised with a 10 blade scalpel developing full-thickness layers down to the retinaculum. Layers were developed identifying the VMO. I then performed a standard medial parapatellar arthrotomy performed in flexion. The anterior horn of the medial meniscus was released. Hoffa's fat pad was then released. I then everted the patella in extension and brought the knee into 90 degrees of flexion. The anterior horn of the lateral meniscus was then released. The ACL was split in its mid substance with a 10 blade. We then brought the knee back into extension. I measured the outer diameter of the patella to be approximately 46 mm, a patellar reamer was then selected. I measured the thickness of the patella to be 28 mm. I then reamed the patella to a depth of approximately 15 mm. A protective baseplate was then placed on the patella. I then placed pins in the metaphyseal distal femur medial to lateral for the Steve arrays. In similar fashion, I made 2 stab incisions approximately a handsbreadth distal to the tibial tubercle along the medial aspect of the tibia, drilling 2 bicortical pins for the tibial array. The knee was brought into flexion. The patella was subluxed laterally but not everted. Medial lateral retractors were placed. We then utilized the [employer] software to confirm our planned surgical procedure and oriented with the patient's osseous anatomy. All checks with the [employer] system were confirmed. Patient had a significant fixed varus deformity after performing stress examination utilizing the Steve software. We elected to place the tibial basep late in approximately 2 degrees of varus to allow for appropriate balancing. Sawblade was then brought in. I first started with the tibial cut, ensuring protection of the MCL and patellar tendon. A tibial wafer was then excised. I then proceeded to make the posterior femoral, anterior, anterior chamfer cuts with the same blade. Ligaments were protected with [employer] retractors. Sawblade was then exchanged to perform the distal femoral and posterior chamfer cuts. The robot was then removed from the surgical field. Remaining loose bone and meniscus was excised carefully. Posterior osteophytes were removed from the distal femur with a curved osteotome and rongeur. Trial components were then placed. Balance was excellent in both extension and 90 degrees flexion. No mid flexion instability was apparent. I then drilled for a size 35 patella. Patella was trialed. Tracking was excellent. We then marked for tibial baseplate. Distal femoral pegs were drilled. Tibial keel was punched. Trials were removed. Periarticular block was administered. The wound was copiously irrigated with normal saline solution. Simplex cement was then mixed on the back table. Components were then cemented in place with excess cement being removed. Cement was allowed to cure with the components in full extension utilizing a 10 mm trial polyethylene component. While the cement was curing, Betadine solution was allowed to soak in the wound and the wound edges for a total of 3 minutes. After cement had cured fully, trial polyethylene was removed. Tourniquet was deflated. Hemostasis was excellent. An additional 1 g TXA was administered IV. I selected a size 10 mm polyethylene which was placed and impacted per wall insulation sprayer recommendations. Final components appeared very well balanced with excellent range of motion. The wound was copiously irrigated with normal saline solution. Capsule was closed watertight with #1 strata fix barbed suture. Deeper bursal layer was reapproximated with 0 Vicryl suture. Dermis was reapproximated buried interrupted 2-0 Vicryl suture. Skin was finally reapproximated columba. A silver sterile compression dressing was then applied. Patient tolerated the procedure well without apparent complication. He awoke safely in the operative suite, was transferred to his hospital bed and subsequently to PACU in stable condition. Post Operative Plan: Plan for discharge home today once same-day surgery criteria is met. Outpatient physical therapy has been scheduled. Weightbearing: Range of motion and weightbearing as tolerated right lower extremity. Antibiotics: 2 g Ancef prior to incision, 1 g IV Ancef prior to discharge DVT Prophylaxis: Aspirin 81 mg p.o. twice daily starting postoperative day #1 morning Fernandez: None Dressing: Maintain silver dressing x7 days X-Rays: 2-week x-rays in the office. Follow-up: 2 weeks in my office for staple removal
[2022-12-11] MEDS: Cefazolin 1 GM/50 ML BAG IV (13:00)
== END 2022-12-11 15:11 | disposition home or self-care (01) ==
LOC: SDC 07:35 → AC 07:35
PROVIDERS: Anesthesiology; PCP Family Medicine; Referring Provider Student in an Organized Health Care Education/Training Program; Visit Provider Student in an Organized Health Care Education/Training Program
PROC: 0SRC0JZ Replacement of Right Knee Joint with Synthetic Substitute, Open Approach (ICD-10-PCS; CPT 27447; principal; 2022-12-11 09:40)
DX: M17.11 Unilateral primary osteoarthritis, right knee (principal); I10 Essential (primary) hypertension; F17.210 Nicotine dependence, cigarettes, uncomplicated; Z96.652 Presence of left artificial knee joint; Z79.899 Other long term (current) drug therapy
CPT/HCPCS: 27447; S2900; 01402; 64447; 36415; 80048; 82962; 83735; 85025; 87077; 87081; 88305; 88311; 97162; C1776; J7120; J2405; J3475

== ENCOUNTER → 2023-01-21 | Outpatient (CLI) | payer MEDICARE, SELFPAY ==
[2023-01-21 13:10] LABS: PSA,Total- Diagnostic 7.27 ng/mL (0.0-4.0)
== END | disposition home or self-care (01) ==
LOC: BIMLAB 10:15
PROVIDERS: PCP Family Medicine; Visit Provider Family Medicine
DX: N40.0 Benign prostatic hyperplasia without lower urinary tract symptoms (principal)
CPT/HCPCS: 36415; 84153; 84403

== ENCOUNTER → 2023-04-27 | Outpatient (CLI) | payer MEDICARE, SELFPAY | END | disposition home or self-care (01) | LOC: LAB 11:42 | PROVIDERS: PCP Family Medicine; Referring Provider Urology; Visit Provider Urology | DX: R97.20 Elevated prostate specific antigen [PSA] (principal) | CPT/HCPCS: 36415; 84153 ==

== ENCOUNTER → 2024-01-13 | Outpatient (CLI) | payer MEDICARE, SELFPAY ==
[2024-01-13 12:21] LABS: Absolute Lymphocyte Count 1.69 X10^3/uL (0.83-4.51); Absolute Neutrophil Count 3.1 X10^3/uL (2.0-7.7); Basophil# 0.06 X10^3/uL; Basophil% 1.1 % (0-1); Eosinophils% 1.9 % (0-5); Hematocrit 45.5 % (40-54); Hemoglobin 15.5 g/dL (13.0-16.5); Lymphocyte # 1.69 X10^3/ul (0.83-4.51); Lymphocyte % 31.5 % (19-41); Mean Corp Hgb Conc 34.1 g/dL (32-36); Mean Corpuscular Hgb 33.2 pg (27.0-32.0); Mean Corpuscular Volume 97.4 fL (80-94); Mean Platelet Vol. 10.5 fl (6.2-12.0); Monocyte# 0.43 X10^3/uL; NRBC Flagged by Analyzer 0 % (0-5); Neutrophil # 3.07 X10^3/uL (2.7-7.7); Neutrophil % 57.1 % (47-70); Platelet Count 225 K/mm3 (150-450); RBC Distribution Width CV 12.3 % (11.6-14.6); RBC Distribution Width SD 44.1 fl (35.1-43.9); Red Blood Count 4.67 M/mm3 (4.6-6.2); White Blood Count 5.4 K/mm3 (4.4-11.0)
[2024-01-13 12:59] LABS: ALB/GLOB Ratio 1.2 RATIO (0.9-2.4); AST(SGOT) 27 U/L (15-37); Alanine Aminotransfer ALT/SGPT 30 U/L (16-61); Albumin, Serum 3.7 g/dL (3.2-5.0); Alkaline Phosphatase 72 U/L (45-117); Anion Gap 3 (5-15); BUN 10 mg/dL (7-18); BUN/Creat Ratio 13.6 RATIO (10-20); Chloride 99 mmol/L (98-107); Creatinine, Serum 0.73 mg/dL (0.70-1.30); EST Glomerular Filtration Rate 112 mL/min (>60); Est Glom Filt Rate - Afr Amer 136 mL/min (>60); Globulin 3.2 g/dL (2.2-4.2); Glucose 102 mg/dL (74-106); PSA,Total - Annual Screen 7.08 ng/mL (0.00-4.00); Potassium 3.7 mmol/L (3.5-5.1); Protein, Total 6.9 g/dL (6.4-8.2); Sodium Level 134 mmol/L (136-145)
== END | disposition home or self-care (01) ==
LOC: BIMLAB 10:42
PROVIDERS: PCP Family Medicine; Referring Provider Family Medicine; Visit Provider Family Medicine
DX: R10.9 Unspecified abdominal pain (principal); Z12.5 Encounter for screening for malignant neoplasm of prostate
CPT/HCPCS: 36415; 80053; 84153; 85025; G0103

== ENCOUNTER → 2024-05-02 | Outpatient (CLI) | payer MEDICARE, SELFPAY | END | disposition home or self-care (01) | LOC: LAB 10:08 | PROVIDERS: PCP Family Medicine; Referring Provider Urology; Visit Provider Urology | DX: R97.20 Elevated prostate specific antigen [PSA] (principal) | CPT/HCPCS: 36415; 84153 ==

== ENCOUNTER → 2024-10-14 | Outpatient (CLI) | payer MEDICARE, SELFPAY ==
--- NOTE | 2024-10-14 14:13 | US_ITS ---
INDICATION: tessticle swelling EXAMINATION: US Scrotum (Contents) TECHNIQUE: Realtime ultrasound of the testicles was performed with grayscale, Color Doppler and spectral Doppler analysis. COMPARISON: None. FINDINGS: RIGHT: TESTIS: Measures 4.5 x 3.1 x 2.3 cm. Normal in size and echotexture, without focal lesion. COLOR DOPPLER: Normal arterial flow present in the testicle with monophasic waveforms. EPIDIDYMIS: Normal in size and echotexture, without focal lesion. [Normal color Doppler flow pattern in the epididymis. HYDROCELE: None. VARICOCELE: None. LEFT: TESTIS: Measures 4.6 x 2.4 x 2.7 cm. Normal in size and echotexture, without focal lesion. COLOR DOPPLER: Normal arterial flow present in the testicle with monophasic waveforms. EPIDIDYMIS: Normal in size and echotexture, without focal lesion. [Normal color Doppler flow pattern in the epididymis. HYDROCELE: Large. VARICOCELE: None. US/Testicular with Arterial Flow IMPRESSION: Large left hydrocele. Otherwise normal bilateral testes and epididymides. Electronically Signed: David Jerez MD at 9:59 EST ,
== END | disposition home or self-care (01) ==
LOC: US 14:13
PROVIDERS: PCP Family Medicine; Referring Provider Physician Assistant; Visit Provider Physician Assistant
DX: N50.89 Other specified disorders of the male genital organs (principal)
CPT/HCPCS: 76870; 93976

== ENCOUNTER → 2024-10-31 | Outpatient (CLI) | payer MEDICARE, SELFPAY ==
[2024-10-31 10:16] LABS: Hematocrit 47.5 % (40-54); Mean Corp Hgb Conc 33.7 g/dL (32-36); Mean Corpuscular Hgb 33.3 pg (27.0-32.0); Mean Corpuscular Volume 98.8 fL (80-94); Mean Platelet Vol. 10.2 fl (6.2-12.0); Platelet Count 224 K/mm3 (150-450); RBC Distribution Width CV 12.5 % (11.6-14.6); RBC Distribution Width SD 45.8 fl (35.1-43.9); Red Blood Count 4.81 M/mm3 (4.6-6.2)
[2024-10-31 11:20] LABS: Anion Gap 5 (5-15); BUN 14 mg/dL (7-18); BUN/Creat Ratio 21.4 RATIO (10-20); Calcium,Total 9.3 mg/dL (8.5-10.1); Chloride 97 mmol/L (98-107); Creatinine, Serum 0.66 mg/dL (0.70-1.30); EST Glomerular Filtration Rate 128 mL/min (>60); Est Glom Filt Rate - Afr Amer 154 mL/min (>60); Glucose 109 mg/dL (74-106); Potassium 3.6 mmol/L (3.5-5.1); Sodium Level 136 mmol/L (136-145)
== END | disposition home or self-care (01) ==
LOC: PSN 08:36
PROVIDERS: PCP Family Medicine; Referring Provider Urology; Visit Provider Urology
DX: Z01.810 Encounter for preprocedural cardiovascular examination (principal); Z01.812 Encounter for preprocedural laboratory examination
CPT/HCPCS: 36415; 80048; 85027; 93005

== ENCOUNTER → 2024-12-29 | Outpatient (CLI) | payer MEDICARE, SELFPAY ==
[2024-12-29 10:29] LABS: Hematocrit 48.6 % (40-54); Hemoglobin 16.6 g/dL (13.0-16.5); Mean Corp Hgb Conc 34.2 g/dL (32-36); Mean Corpuscular Hgb 33.2 pg (27.0-32.0); Mean Corpuscular Volume 97.2 fL (80-94); Mean Platelet Vol. 10.4 fl (6.2-12.0); Platelet Count 237 K/mm3 (150-450); RBC Distribution Width CV 12.5 % (11.6-14.6); RBC Distribution Width SD 44.8 fl (35.1-43.9); White Blood Count 5.7 K/mm3 (4.4-11.0)
[2024-12-29 11:48] LABS: Anion Gap 11 (5-15); BUN 10 mg/dL (4-19); BUN/Creat Ratio 13.4 RATIO (10-20); Calcium,Total 9.6 mg/dL (7.6-11.0); Chloride 97 mmol/L (98-108); Creatinine, Serum 0.75 mg/dL (0.70-1.20); EST Glomerular Filtration Rate 97 (>60); Glucose 101 mg/dL (70-99); Sodium Level 135 mmol/L (133-145)
== END | disposition home or self-care (01) ==
LOC: LAB 10:05
PROVIDERS: PCP Family Medicine; Referring Provider Urology; Visit Provider Urology
DX: Z01.812 Encounter for preprocedural laboratory examination (principal)
CPT/HCPCS: 36415; 80048; 85027

== ENCOUNTER → 2025-01-18 | Outpatient (CLI) | payer MEDICARE, SELFPAY ==
[2025-01-18 13:41] LABS: Cholesterol 201 mg/dL (<=200); High Density Lipoprotein 81 mg/dL; Low Density Lipoprotein Calc. 103 mg/dL; Triglycerides 86 mg/dL; Very Low Density Lipoprotein 17 mg/dL (5-40); cholesterol:hdl ratio screen 2.49
== END | disposition home or self-care (01) ==
LOC: BIMLAB 10:17
PROVIDERS: PCP Family Medicine; Referring Provider Family Medicine; Visit Provider Family Medicine
DX: I10 Essential (primary) hypertension (principal)
CPT/HCPCS: 36415; 80061

== ENCOUNTER → 2025-05-04 | Outpatient (CLI) | payer MEDICARE, SELFPAY ==
[2025-05-04 12:18] LABS: PSA,Total- Diagnostic 8.18 ng/mL (0.00-4.00)
== END | disposition home or self-care (01) ==
LOC: LAB 10:45
PROVIDERS: PCP Family Medicine; Referring Provider Urology; Visit Provider Urology
DX: R97.20 Elevated prostate specific antigen [PSA] (principal)
CPT/HCPCS: 36415; 84153